=== PATIENT | female | born 1940 | race Caucasian/White ===

== ENCOUNTER → 2016-07-02 | Outpatient (CLI) | payer MEDICARE ==
[~2016-07-02] MED LIST: ABIL5TAB OR; DOCU50SY2 PO; MAGN1SOL2 PO; METO100T PO; MIRA33504 PO; OMEG1CAP53 PO; SENN8.6C PO; ZANT150T2 PO
== END ==
LOC: CLAB 09:40
PROVIDERS: ATTEND Family Medicine
DX: Z11.4 Encounter for screening for human immunodeficiency virus [HIV] (principal)
CPT/HCPCS: 36415; 86703

== ENCOUNTER 2016-08-12 12:11 | Emergency (ER) | payer MEDICARE ==
[~2016-08-12] VITALS: Ht 160 cm; Wt 55.0 kg
[~2016-08-12 12:11] MED LIST changes: -MIRA33504 PO; -SENN8.6C PO
[2016-08-12 12:14] VITALS: BP 158/99; PULSE 79; RESP 16; TEMP 97.9; O2SAT 97
--- NOTE | 2016-08-12 12:15 | PD ---
Physical Exam Time Seen by Provider: 12:14 Narrative 76 y/o female with difficulty having bowel movements and difficulty urinating since this AM. VSS Seen at triage desk. Awaiting bed placement. Data Data Last Documented VS Vital Signs Date Time Temp Pulse Resp B/P Pulse Ox O2 Delivery O2 Flow Rate FiO2 08/12/16 12:14 97.9 79 16 158/99 97 MDM Medical Record Reviewed: Yes Supervised Visit with CLAIRE: No Steven Zarate August 12, 2016 12:15
[2016-08-12] MEDS ORDERED: METO100T PO (12:23)
[2016-08-12] MEDS ORDERED: OMEG1CAP53 PO (12:23)
--- NOTE | 2016-08-12 12:55 | PD ---
HPI Chief Complaint: GI Complaint Time Seen by Provider: 12:42 Travel History International Travel<30 days: No Contact w/Intl Traveler<30days: No Traveled to known affect area: No History of Present Illness HPI Pleasant 76 year-old female here with complaint of constipation and urinary difficulties. Patient has history of chronic constipation, takes to go lax intermittent lay for this. She's not had a bowel movement for days but continues to pass flatus. No abdominal pain, rectal pain, nausea, vomiting. This morning patient has had difficulty urinating, notes frequency, hesitancy but no dysuria or hematuria. PFSH Past Medical History Anxiety: Yes Cardiovascular Problems: Yes (left ventricular hypertrophy) High Cholesterol: Yes (PER HX, UNKNOWN AT THIS TIME) Diabetes: No (AT ONE TIME THOUGHT TO BE PREDIABETIC) Diminished Hearing: No Hypertension: Yes Menopausal: No : 4 Para: 3 Miscarriage: 0 : 1 Past Surgical History Tonsillectomy: Yes (at age 8 or 9) Social History Alcohol Use: No Tobacco Use: No Substance Use: No Allergies-Medications (Allergen,Severity, Reaction): Coded Allergies: No Known Allergies (Verified , 08/12/16) Reported Meds & Prescriptions Reported Meds & Active Scripts Active Docusate Sodium 50 Mg/5 Ml Liq 200 Mg PO DAILY Magnesium Citrate 300 Ml Soln 300 Ml PO DIRECTED Reported Lovaza (Yiltx-8-Rntp Ethyl Esters) 1 Gm Cap 4 Gm PO DAILY Metoprolol Tartrate 100 Mg Tab 100 Mg PO DAILY Lovaza (Fish Oil) 1 Gm Cap 1 Gm PO 4 TIMES DAILY Zantac (Ranitidine HCl) 150 Mg Tab 150 Mg PO BID Metoprolol Tartrate 100 mg (Metoprolol Tartrate) 100 Mg Tab 100 Mg PO DAILY Abilify (Aripiprazole) 5 Mg Tab 5 Mg OR HS Review of Systems Except as stated in HPI: all other systems reviewed are Neg Physical Exam Narrative GENERAL: Pleasant elderly female in no acute distress SKIN: Focused skin assessment warm/dry. HEAD: Normocephalic. EYES: No scleral icterus. No injection or drainage. ENT: Mucous membranes pink and moist. NECK: Supple CARDIOVASCULAR: Regular rate and rhythm. RESPIRATORY: No accessory muscle use. GASTROINTESTINAL: Abdomen soft, non-tender, nondistended. MUSCULOSKELETAL: Normal gait NEUROLOGICAL: Awake and alert. Normal speech. PSYCHIATRIC: Appropriate mood and affect; insight and judgment normal. Data Data Last Documented VS Vital Signs Date Time Temp Pulse Resp B/P Pulse Ox O2 Delivery O2 Flow Rate FiO2 08/12/16 12:14 97.9 79 16 158/99 97 Orders Urinalysis - C+S If Indicated (08/12/16 12:42) Cath For Specimen (08/12/16 12:42) Labs Laboratory Tests Test 08/12/16 12:44 Urine Color YELLOW Urine Turbidity CLEAR Urine pH 5.5 Urine Specific [place] 1.020 Urine Protein TRACE mg/dL Urine Glucose (UA) TRACE mg/dL Urine Ketones NEG mg/dL Urine Occult Blood NEG Urine Nitrite NEG Urine Bilirubin NEG Urine Urobilinogen LESS THAN 2.0 MG/DL Urine Leukocyte Esterase NEG Urine RBC 2 /hpf Urine WBC 1 /hpf Urine Hyaline Casts 16 /lpf Urine Mucus FEW /lpf Microscopic Urinalysis Comment CATH-CULT NOT IND MDM Medical Decision Making Medical Screen Exam Complete: Yes Emergency Medical Condition: Yes Medical Record Reviewed: Yes Differential Diagnosis 76-year-old female here with chronic constipation, urinary difficulties times one day. Differential includes constipation, bowel obstruction, fecal impaction , urinary tract infection. No associated back pain or recent fall to suggest cauda equina syndrome. Narrative Course Urinalysis showed no evidence of urinary tract infection, we'll discharge home with bowel regimen. Diagnosis Primary Impression: Constipation Qualified Code: K59.04 - Chronic idiopathic constipation Referrals: Primary Care Physician as needed Patient Instructions: Constipation (ED), General Instructions Additional Instructions: Bowel regimen as prescribed. Follow-up with primary care provider symptoms persist or return to the ER for the warning signs discussed. Med/Other Pt SpecificInfo: Prescription(s) given Scripts Sennosides (Senna)8.6 Mg Cap8.6 Mg PO HS #30 CAP Ref 0 Prov:Joaquina Song MD 08/12/16 Polyethylene Glycol 3350 Powder (Miralax Powder)17 Gm Powd17 Gm PO BID PRN ( CONSTIPATION) #1 BOTTLE Ref 0 Mix and dissolve one measuring cap-ful (17 grams) in water or juice. Prov:Joaquina Song MD 08/12/16 Disposition: 01 DISCHARGE HOME Condition: Stable Joaquina Song MD August 12, 2016 12:55
[2016-08-12 13:05] LABS: BLOOD, URINE NEG (NEG); COMMENT (UR) CATH-CULT NOT IND; CULTURE IF INDICATED CATH CULTURE NOT IND; GLUCOSE,URINE TRACE mg/dL (NEG); HYALINE CAST, URINE 16 /lpf (RARE); KETONE, URINE NEG (NEG); MUCUS URINE FEW /lpf (OCC); NITRITE,URINE NEG (NEG); PH, URINE 5.5 (5.0-8.5); URINE COLOR YELLOW (YELLW/STRAW)
[2016-08-12] MEDS ORDERED: MIRA33504 PO (13:13)
[2016-08-12] MEDS ORDERED: SENN8.6C PO (13:13)
== END 2016-08-12 13:22 | disposition home or self-care (01) ==
LOC: NEPD 12:11
DX: K59.04 Chronic idiopathic constipation (principal); R30.0 Dysuria; E78.00 Pure hypercholesterolemia, unspecified; I10 Essential (primary) hypertension
CPT/HCPCS: 81001; 99283; P9612

== ENCOUNTER 2016-08-13 08:33 | Emergency (ER) | payer MEDICARE ==
[~2016-08-13] VITALS: Ht 160 cm; Wt 57.0 kg
[~2016-08-13 08:33] MED LIST changes: +MIRA33504 PO; +SENN8.6C PO
[2016-08-13 08:34] VITALS: BP 182/89; PULSE 64; RESP 15; TEMP 97.6; O2SAT 99
--- NOTE | 2016-08-13 09:04 | PD ---
HPI Chief Complaint: GI Complaint Time Seen by Provider: 08:44 Travel History International Travel<30 days: No Contact w/Intl Traveler<30days: No Traveled to known affect area: No History of Present Illness HPI The patient is a 76-year-old female who presents to the emergency department for rectal pain. The patient has a history of intermittent constipation, states her last bowel movement was one week ago. The patient was seen in the emergency department yesterday for constipation, was diagnosed with constipation and discharged home with medications. However, the patient was unable to have a bowel movement last night and at 4 AM this morning developed rectal pain. The patient complains of perirectal pain and pressure with a large stool at the anal orifice. The patient denies any nausea, vomiting, or abdominal pain. Symptoms are moderate, exacerbated by history of constipation, and there are no current alleviating factors. The patient denies any current dysuria, frequency, or urgency. PFSH Past Medical History Anxiety: Yes Cardiovascular Problems: Yes (left ventricular hypertrophy) High Cholesterol: Yes (PER HX, UNKNOWN AT THIS TIME) Diabetes: No (AT ONE TIME THOUGHT TO BE PREDIABETIC) Diminished Hearing: No Hypertension: Yes ?: Not Menopausal: No : 4 Para: 3 Miscarriage: 0 : 1 Past Surgical History Tonsillectomy: Yes (at age 8 or 9) Social History Alcohol Use: No Tobacco Use: No Substance Use: No Allergies-Medications (Allergen,Severity, Reaction): Coded Allergies: No Known Allergies (Verified , 08/12/16) Reported Meds & Prescriptions Reported Meds & Active Scripts Active Senna (Sennosides) 8.6 Mg Cap 8.6 Mg PO HS Miralax Powder (Polyethylene Glycol 3350 Powder) 17 Gm Powd 17 Gm PO BID PRN Mix and dissolve one measuring cap-ful (17 grams) in water or juice. Docusate Sodium 50 Mg/5 Ml Liq 200 Mg PO DAILY Magnesium Citrate 300 Ml Soln 300 Ml PO DIRECTED Reported Lovaza (Nqaet-4-Lpqh Ethyl Esters) 1 Gm Cap 4 Gm PO DAILY Metoprolol Tartrate 100 Mg Tab 100 Mg PO DAILY Lovaza (Fish Oil) 1 Gm Cap 1 Gm PO 4 TIMES DAILY Zantac (Ranitidine HCl) 150 Mg Tab 150 Mg PO BID Metoprolol Tartrate 100 mg (Metoprolol Tartrate) 100 Mg Tab 100 Mg PO DAILY Abilify (Aripiprazole) 5 Mg Tab 5 Mg OR HS Review of Systems Except as stated in HPI: all other systems reviewed are Neg Cardiovascular: No: Chest Pain or Discomfort Respiratory: No: Shortness of Breath Gastrointestinal: Positive: Constipation, Other (perirectal pain and pressure) , No: Nausea, Vomiting, Diarrhea, Abdominal Pain Genitourinary: No: Dysuria Musculoskeletal: No: Weakness Skin: No Rash Physical Exam Narrative GENERAL: Awake, alert, pleasant 76-year-old female who appears her stated age and is in no acute respiratory distress. SKIN: Focused skin assessment warm/dry. HEAD: Atraumatic. Normocephalic. EYES: Pupils equal and round. No scleral icterus. No injection or drainage. ENT: No nasal bleeding or discharge. Mucous membranes pink and moist. NECK: Trachea midline. No JVD. CARDIOVASCULAR: Regular rate and rhythm. No murmur appreciated. RESPIRATORY: No accessory muscle use. Clear to auscultation. Breath sounds equal bilaterally. GASTROINTESTINAL: Abdomen soft, non-tender, nondistended. No rebound tenderness. Rectal: The exam was performed in the presence of a female nurse. Large, hard stool at the anal orifice. No visible blood. No obvious fissure. MUSCULOSKELETAL: No obvious deformities. No clubbing. No cyanosis. No edema. NEUROLOGICAL: Awake and alert. No obvious cranial nerve deficits. Motor grossly within normal limits. Normal speech. PSYCHIATRIC: Appropriate mood and affect; insight and judgment normal. Data Data Last Documented VS Vital Signs Date Time Temp Pulse Resp B/P Pulse Ox O2 Delivery O2 Flow Rate FiO2 08/13/16 08:34 97.6 64 15 182/89 99 MDM Medical Decision Making Medical Screen Exam Complete: Yes Emergency Medical Condition: Yes Medical Record Reviewed: Yes Differential Diagnosis Differential diagnosis includes fecal impaction, constipation, dehydration, diverticulitis, sigmoid volvulus, colonic mass. Narrative Course The patient's physical examination reveals a large stool, hard, impacted at the anal orifice. Therefore, with a female nurse in the room, the large stool was manually disimpacted. The patient had immediate relief of her symptoms. I reviewed the patient's lab work from yesterday, the patient is stable for outpatient follow-up. The patient is advised to drink plenty fluids to stay hydrated, stool softeners, and plenty of diarrhea and her fiber. She is advised to follow-up with her business intelligence analyst, Dr. Murrieta, his symptoms persist. Diagnosis Primary Impression: Fecal impaction in rectum Additional Impression: Constipation Qualified Code: K59.00 - Constipation, unspecified constipation type Patient Instructions: General Instructions Additional Instructions: Plenty of fluids to stay hydrated. Follow-up with her business intelligence analyst. Stool softeners daily. Return if symptoms worsen or progress. Med/Other Pt SpecificInfo: No Change to Meds Disposition: 01 DISCHARGE HOME Condition: Stable Jose Luis Segovia MD August 13, 2016 09:04
== END 2016-08-13 09:21 | disposition home or self-care (01) ==
LOC: NEPE 08:33
DX: K56.41 Fecal impaction (principal)
CPT/HCPCS: 99283

== ENCOUNTER 2016-11-21 20:15 | Emergency (ER) | payer MEDICARE ==
[~2016-11-21] VITALS: Ht 162.6 cm; Wt 57.0 kg
[2016-11-21 20:18] VITALS: BP 212/84; PULSE 73; RESP 16; TEMP 98.3; O2SAT 96
[2016-11-21] MEDS ORDERED: ASPIRIN 325 MG TAB PO ONE (20:30)
[2016-11-21] MEDS ORDERED: SODIUM CHLORIDE 0.9% FLUSH 10 ML FLUSH IVF PRN (20:30)
[2016-11-21] MEDS ORDERED: OMEG100010 (20:32)
[2016-11-21] MEDS ORDERED: METO100T PO (20:32)
[2016-11-21] MEDS ORDERED: ARIP1TAB11 PO (20:32)
[2016-11-21] MEDS ORDERED: RANI150T PO (20:32)
--- NOTE | 2016-11-21 20:36 | PD ---
HPI Chief Complaint: Chest Pain Time Seen by Provider: 23:09 Travel History International Travel<30 days: No Contact w/Intl Traveler<30days: No Traveled to known affect area: No History of Present Illness HPI 76- year old female presents to the ED complaining of palpitations and shortness of breath. The patient reports that she had these symptoms for the past two weeks, only today she feel more "fuzzy." She reports associated lightheadedness and nausea when the episodes occur. She reports when the episodes occur, she gets anxious about the palpitations and then they get worse. She denies any chest pain or pain anywhere else. She denies any smoking, alcohol, or drugs. She reports a past medical history of LVH and HTN. She has no chest pain. No abdominal pain. PFSH Past Medical History Anxiety: Yes Depression: Yes Cardiovascular Problems: Yes (left ventricular hypertrophy) High Cholesterol: Yes Diabetes: No Diminished Hearing: No Hypertension: Yes Menopausal: No : 4 Para: 3 Miscarriage: 0 : 1 Past Surgical History Tonsillectomy: Yes (at age 8 or 9) Social History Alcohol Use: Yes (occassionally) Tobacco Use: No Substance Use: No Allergies-Medications (Allergen,Severity, Reaction): Coded Allergies: No Known Allergies (Verified , 11/21/16) Reported Meds & Prescriptions Reported Meds & Active Scripts Active Reported Aripiprazole 5 Mg Tab 5 Mg PO HS Ranitidine (Ranitidine HCl) 150 Mg Tab 150 Mg PO BID Mcgrath 3 1000 mg (Mcgrath-3 Fatty Acids) 1 Cap Cap 1 Metoprolol Tartrate 100 Mg Tab 100 Mg PO DAILY Review of Systems General / Constitutional: No: Fever, Chills, Weight Gain, Weight Loss, Other Eyes: No: Diploplia, Blurred Vision, Photophobia, Drainage, Redness, Foreign Body Sensation, Pain, Tearing, Blind Spots, Visual changes, Blindness, Other HENT: Positive: Lightheadedness, No: Headaches, Vertigo, Sore Throat, Rhinitis , Rhinorrhea, Congestion, Nosebleed, Neck Stiffness, Neck Pain, Masses, Gingival Bleeding, Dental Difficulties, Ear Discharge, Earache, Other Cardiovascular: Positive: Palpitations, No: Chest Pain or Discomfort, Irregular Rhythm, Tachycardia, Diaphoresis, Syncope, Dyspnea on exertion, Varicosities, Edema, Cyanosis, Varicosities, Phlebitis, Claudication, Other Respiratory: Positive: Shortness of Breath, No: Cough, Wheezing, Sneezing, Orthopnea, Hemoptysis, Stridor, Night Sweats, Pleuritic Pain, Other Gastrointestinal: Positive: Nausea, No: Vomiting, Diarrhea, Abdominal Pain, Hematemesis, Hematochezia, Constipation, Changes in Bowel Habits, Indigestion, Dysphagia, Loss of Appetite, Other Genitourinary: No: Urgency, Frequency, Dysuria, Nocturia, Hematuria, Decreased Urinary Output, Oliguria, Hesitancy, Dribbling, Incontinence, Pelvic Pain, Flank Pain, Dyspareunia, Discharge, Dysmenorrhea, Menorrhagia, Metorrhagia, Vaginal Bleeding, Other Musculoskeletal: No: Myalgias, Arthralgias, Limited ROM, Weakness, Cramping, Edema, Pain, Atrophy, Other Skin: No Rash, No Itching, No Dryness, No Lumps, No Hives, No Change in Pigmentation, No Change in nails, No Alopecia, No Lesions, No Breast Lumps, No Breast Tenderness, No Breast Swelling, No Other Neurologic: No: Weakness, Dizziness, Syncope, Focal Abnormalities, Coordination Problem, Tremor, Ataxia, Headache, Change in Mentation, Slurred Speech, Paresthesia, Incontinence, Seizures, Sensory Disturbance, Other Psychiatric: Positive: Anxiety (with palpitations), No: Depression, Suicidal Ideations, Disorder of Thought, Mood Disorder, Substance Abuse, Homicidal Ideation, Other Physical Exam Narrative GENERAL: SKIN: Warm and dry. HEAD: Atraumatic. Normocephalic. EYES: Pupils equal and round 4 mm reactive to light and accommodation. No scleral icterus. No injection or drainage. ENT: No nasal bleeding or discharge. Mucous membranes pink and moist. NECK: Trachea midline. No JVD. CARDIOVASCULAR: Regular rate and rhythm. No murmurs, S3, S4. RESPIRATORY: No accessory muscle use. Clear to auscultation. Breath sounds equal bilaterally. GASTROINTESTINAL: Abdomen soft, non-tender, nondistended. Hepatic and splenic margins not palpable. MUSCULOSKELETAL: Extremities without clubbing, cyanosis, or edema. No obvious deformities. Full range of motion of the upper and lower extremities bilaterally. 2+ pulses bilaterally. NEUROLOGICAL: Awake and alert. No obvious cranial nerve deficits. Motor grossly within normal limits. Five out of 5 muscle strength in the arms and legs. Normal speech. PSYCHIATRIC: Appropriate mood and affect; insight and judgment normal. Data Data Last Documented VS Vital Signs Date Time Temp Pulse Resp B/P Pulse Ox O2 Delivery O2 Flow Rate FiO2 11/21/16 20:42 173/79 11/21/16 20:42 97 Room Air 11/21/16 20:18 98.3 73 16 Orders Electrocardiogram (11/21/16 20:29) Basic Metabolic Panel (Bmp) (11/21/16 20:29) Ckmb (Isoenzyme) Profile (11/21/16 20:29) Complete Blood Count With Diff (11/21/16 20:29) Magnesium (Mg) (11/21/16 20:29) Prothrombin Time / Inr (Pt) (11/21/16 20:29) Act Partial Throm Time (Ptt) (11/21/16 20:29) Troponin I (11/21/16 20:29) Chest, Single Ap (11/21/16 20:29) Ecg Monitoring (11/21/16 20:29) Bilateral Bp Monitoring (11/21/16 20:29) Iv Access Insert/Monitor (11/21/16 20:29) Oximetry (11/21/16 20:29) Oxygen Administration (11/21/16 20:29) Aspirin (Aspirin) (11/21/16 20:30) Sodium Chloride 0.9% Flush (Ns Flush) (11/21/16 20:30) CKMB (11/21/16 20:35) CKMB% (11/21/16 20:35) Ct Brain W/O Iv Contrast(Rout) (11/21/16 ) Sodium Chlor 0.9% 1000 Ml Inj (Ns 1000 M (11/21/16 22:33) Lorazepam (Ativan) (11/21/16 23:00) Labs Laboratory Tests Test 11/21/16 20:35 White Blood Count 8.1 TH/MM3 Red Blood Count 4.19 MIL/MM3 Hemoglobin 12.6 GM/DL Hematocrit 37.2 % Mean Corpuscular Volume 88.6 FL Mean Corpuscular Hemoglobin 30.1 PG Mean Corpuscular Hemoglobin 34.0 % Concent Red Cell Distribution Width 13.4 % Platelet Count 311 TH/MM3 Mean Platelet Volume 6.8 FL Neutrophils (%) (Auto) 52.0 % Lymphocytes (%) (Auto) 35.7 % Monocytes (%) (Auto) 11.3 % Eosinophils (%) (Auto) 0.4 % Basophils (%) (Auto) 0.6 % Neutrophils # (Auto) 4.2 TH/MM3 Lymphocytes # (Auto) 2.9 TH/MM3 Monocytes # (Auto) 0.9 TH/MM3 Eosinophils # (Auto) 0.0 TH/MM3 Basophils # (Auto) 0.1 TH/MM3 CBC Comment DIFF FINAL Differential Comment Prothrombin Time 10.7 SEC Prothromb Time International 1.0 RATIO Ratio Activated Partial 26.3 SEC Thromboplast Time Sodium Level 135 MEQ/L Potassium Level 3.7 MEQ/L Chloride Level 98 MEQ/L Carbon Dioxide Level 23.8 MEQ/L Anion Gap 13 MEQ/L Blood Urea Nitrogen 16 MG/DL Creatinine 1.20 MG/DL Estimat Glomerular Filtration 44 ML/MIN Rate Random Glucose 136 MG/DL Calcium Level 9.3 MG/DL Magnesium Level 2.2 MG/DL Total Creatine Kinase 153 U/L Creatine Kinase MB 1.9 NG/ML Troponin I LESS THAN 0.02 NG/ML MDM Medical Decision Making Medical Screen Exam Complete: Yes Emergency Medical Condition: Yes Medical Record Reviewed: Yes Interpretation(s) EKG shows sinus rhythm with no sign of acute ischemia or arrhythmia. Read by me and attending. Last Impressions Chest X-Ray 11/21/162028 Signed Impressions: Service Date/Time: Monday, November 21, 2016 20:31 - CONCLUSION: 1. Basilar atelectasis. Moderate scoliosis. Juan Pablo Low MD Head CT 11/21/16 0000 Signed Impressions: Service Date/Time: Monday, November 21, 2016 22:04 - CONCLUSION: Normal examination for a patient of this age. Juan Pablo Low MD CBC & BMP Diagram 11/21/16 20:35 TSH WNL troponin and CKMB negative Differential Diagnosis Anxiety versus palpitations versus PVCs versus arrhythmia versus normal exam Narrative Course 76-year-old female that presents to the ED for evaluation of palpitations. Patient was properly examined and was found to have signs and symptoms consistent with appears to be palpitations. Unclear etiology. Labs and imaging were ordered. Labs and imaging were unremarcable. Case discussed with Dr Caal who will evaluate the patient and dispo. Patient was given a prescription for Vistaril. Please refer to my attendings note. Diagnosis Primary Impression: Palpitations Patient Instructions: Narcotic given in the ED, General Instructions Additional Instructions: Take medications as prescribed. Follow with PCP. See ED worsening symptoms. Med/Other Pt SpecificInfo: Prescription(s) given Disposition: 01 DISCHARGE HOME Condition: Gaot Bangura Nov 21, 2016 20:36
[2016-11-21 20:42] VITALS: BP 173/79; O2SAT 97
[2016-11-21 20:49] LABS: AUTOMATED NEUTROPHIL # 4.2 TH/MM3 (1.8-7.7); BASOPHIL # 0.1 TH/MM3 (0-0.2); BASOPHIL % 0.6 % (0.0-2.0); EOSINOPHIL % 0.4 % (0.0-4.0); HEMATOCRIT 37.2 % (35.0-46.0); HEMO FLAGS DIFF FINAL; LYMPH % 35.7 % (9.0-44.0); LYMPHOCYTE # 2.9 TH/MM3 (1.0-4.8); MEAN CELL VOLUME 88.6 FL (80.0-100.0); MEAN CORPUSCULAR HEMOGLOBIN 30.1 PG (27.0-34.0); MONO % 11.3 % (0.0-8.0); PLATELET COUNT 311 TH/MM3 (150-450); RED BLOOD COUNT 4.19 MIL/MM3 (4.00-5.30); RED CELL DISTRIBUTION WIDTH 13.4 % (11.6-17.2); WHITE BLOOD COUNT 8.1 TH/MM3 (4.0-11.0)
[2016-11-21 21:03] LABS: APTT (PATIENT) 26.3 SEC (24.3-30.1); PROTHROMBIN TIME - PATIENT 10.7 SEC (9.8-11.6)
--- NOTE | 2016-11-21 21:04 | RADRPT ---
EXAM DATE/TIME: 11/21/2016 20:31 [facility] COMPARISON: No previous studies available for comparison. INDICATIONS : Palpitations. MEDICAL HISTORY : None. SURGICAL HISTORY : None. ENCOUNTER: Initial ACUITY: 2 weeks PAIN SCORE: 1/10 LOCATION: Bilateral chest FINDINGS: There is a moderate thoracic dextroscoliosis. Mild basilar density most characteristic of atelectasis . Heart size within normal limits. No effusion or pneumothorax. CONCLUSION: 1. Basilar atelectasis. Moderate scoliosis. Juan Pablo Low MD on November 21, 2016 at 21:02 Board Certified Radiologist. This report was verified electronically.
[2016-11-21 21:06] LABS: ANION GAP 13 MEQ/L (5-15); BICARBONATE 23.8 MEQ/L (21.0-32.0); BLOOD UREA NITROGEN 16 MG/DL (7-18); CHLORIDE 98 MEQ/L (98-107); GLOMERULAR FILTRATION RATE 44 ML/MIN (>89); MAGNESIUM 2.2 MG/DL (1.5-2.5); POTASSIUM 3.7 MEQ/L (3.5-5.1); SODIUM (NA) 135 MEQ/L (136-145)
[2016-11-21 21:09] LABS: CREATINE KINASE 153 U/L (26-192)
[2016-11-21 21:22] LABS: CKMB 1.9 NG/ML (0.5-3.6)
[2016-11-21] MEDS ORDERED: SODIUM CHLOR 0.9% 1000 ML INJ 1,000 ML IV SCH (22:33)
--- NOTE | 2016-11-21 22:40 | RADRPT ---
EXAM DATE/TIME: 11/21/2016 22:04 [facility] COMPARISON: No previous studies available for comparison. INDICATIONS : Headache. RADIATION DOSE: 28.10 CTDIvol (mGy) MEDICAL HISTORY : Hypertension. SURGICAL HISTORY : None. ENCOUNTER: Initial ACUITY: 1 day PAIN SCALE: 6/10 LOCATION: cranial TECHNIQUE: Multiple contiguous axial images were obtained of the head. Using automated exposure control and adj ustment of the mA and/or kV according to patient size, radiation dose was kept as low as reasonably a chievable to obtain optimal diagnostic quality images. DICOM format image data is available electro nically for review and comparison. FINDINGS: CEREBRUM: The ventricles are normal for age. No evidence of midline shift, mass lesion, hemorrhage or acute in farction. No extra-axial fluid collections are seen. POSTERIOR FOSSA: The cerebellum and brainstem are intact. The 4th ventricle is midline. The cerebellopontine angle i s unremarkable. EXTRACRANIAL: The visualized portion of the orbits is intact. SKULL: The calvaria is intact. No evidence of skull fracture. CONCLUSION: Normal examination for a patient of this age. Juan Pablo Low MD on November 21, 2016 at 22:38 Board Certified Radiologist. This report was verified electronically.
--- NOTE | 2016-11-21 22:54 | PD ---
Data Data Last Documented VS Vital Signs Date Time Temp Pulse Resp B/P Pulse Ox O2 Delivery O2 Flow Rate FiO2 11/21/16 20:42 173/79 11/21/16 20:42 97 Room Air 11/21/16 20:18 98.3 73 16 Orders Electrocardiogram (11/21/16 20:29) Basic Metabolic Panel (Bmp) (11/21/16 20:29) Ckmb (Isoenzyme) Profile (11/21/16 20:29) Complete Blood Count With Diff (11/21/16 20:29) Magnesium (Mg) (11/21/16 20:29) Prothrombin Time / Inr (Pt) (11/21/16 20:29) Act Partial Throm Time (Ptt) (11/21/16 20:29) Troponin I (11/21/16 20:29) Chest, Single Ap (11/21/16 20:29) Ecg Monitoring (11/21/16 20:29) Bilateral Bp Monitoring (11/21/16 20:29) Iv Access Insert/Monitor (11/21/16 20:29) Oximetry (11/21/16 20:29) Oxygen Administration (11/21/16 20:29) Aspirin (Aspirin) (11/21/16 20:30) Sodium Chloride 0.9% Flush (Ns Flush) (11/21/16 20:30) CKMB (11/21/16 20:35) CKMB% (11/21/16 20:35) Ct Brain W/O Iv Contrast(Rout) (11/21/16 ) Sodium Chlor 0.9% 1000 Ml Inj (Ns 1000 M (11/21/16 22:33) Lorazepam (Ativan) (11/21/16 23:00) Labs Laboratory Tests Test 11/21/16 20:35 White Blood Count 8.1 TH/MM3 Red Blood Count 4.19 MIL/MM3 Hemoglobin 12.6 GM/DL Hematocrit 37.2 % Mean Corpuscular Volume 88.6 FL Mean Corpuscular Hemoglobin 30.1 PG Mean Corpuscular Hemoglobin 34.0 % Concent Red Cell Distribution Width 13.4 % Platelet Count 311 TH/MM3 Mean Platelet Volume 6.8 FL Neutrophils (%) (Auto) 52.0 % Lymphocytes (%) (Auto) 35.7 % Monocytes (%) (Auto) 11.3 % Eosinophils (%) (Auto) 0.4 % Basophils (%) (Auto) 0.6 % Neutrophils # (Auto) 4.2 TH/MM3 Lymphocytes # (Auto) 2.9 TH/MM3 Monocytes # (Auto) 0.9 TH/MM3 Eosinophils # (Auto) 0.0 TH/MM3 Basophils # (Auto) 0.1 TH/MM3 CBC Comment DIFF FINAL Differential Comment Prothrombin Time 10.7 SEC Prothromb Time International 1.0 RATIO Ratio Activated Partial 26.3 SEC Thromboplast Time Sodium Level 135 MEQ/L Potassium Level 3.7 MEQ/L Chloride Level 98 MEQ/L Carbon Dioxide Level 23.8 MEQ/L Anion Gap 13 MEQ/L Blood Urea Nitrogen 16 MG/DL Creatinine 1.20 MG/DL Estimat Glomerular Filtration 44 ML/MIN Rate Random Glucose 136 MG/DL Calcium Level 9.3 MG/DL Magnesium Level 2.2 MG/DL Total Creatine Kinase 153 U/L Creatine Kinase MB 1.9 NG/ML Troponin I LESS THAN 0.02 NG/ML MDM Supervised Visit with CLAIRE: Yes Narrative Course I, Dr. Caal, have reviewed the advance practice practitioner's documentation and am in agreement, met with the patient face to face, made the diagnosis, and the medical decision making was done by me. *My assessment and Findings: Patient seen and examined by me in addition to Gato Link PA-C. Patient's exam is benign. Symptoms are just generalized feeling of not feeling well. Family is convinced this is an anxiety reaction. Patient less convinced. She did request something for her nerves and was given Ativan. Patient physical exam including neurological chest abdomen is benign. Initial workup EKG troponin unremarkable. I think at this time she is stable for discharge is no indication for admission. Discussed return to ED criteria and need follow-up the primary care physician. Scripts Hydroxyzine Pamoate (Vistaril)50 Mg Cap50 Mg PO QID PRN (ANXIETY) #20 CAP Ref 0 Prov:Chin Caal MD 11/21/16 Disposition: 01 DISCHARGE HOME Condition: Stable Chin Caal MD Nov 21, 2016 22:54
[2016-11-21] MEDS ORDERED: LORazepam 1 MG TAB PO ONE (23:00)
[2016-11-21] MEDS ORDERED: VIST50CA PO (23:10)
--- NOTE | 2016-11-22 17:19 | EKG ---
Date Performed: 11/21/2016 Time Performed: 20:32:00 PTAGE: 76 years EKG: Sinus rhythm BORDERLINE LEFT AXIS DEVIATION BORDERLINE ECG Compared to prior tracing no significant change PREVIOUS TRACING : 09/30/2010 06.42 DOCTOR: Bryant Morris Interpretating Date/Time 11/22/2016 17:16:22
== END 2016-11-21 23:56 | disposition home or self-care (01) ==
LOC: NEPE 20:15
DX: R00.2 Palpitations (principal); R11.0 Nausea; R42 Dizziness and giddiness; M41.9 Scoliosis, unspecified; F32.9 Major depressive disorder, single episode, unspecified; I51.7 Cardiomegaly; I10 Essential (primary) hypertension; Z79.899 Other long term (current) drug therapy
CPT/HCPCS: 70450; 71010; 80048; 82550; 82552; 83735; 84484; 85025; 85610; 85730; 93005; 99285; J7030

== ENCOUNTER 2017-01-14 14:34 | Inpatient (IN) | payer MEDICARE ==
[~2017-01-14] VITALS: Ht 160 cm; Wt 58.6 kg
[~2017-01-14 14:34] MED LIST changes: -ABIL5TAB OR; +ARIP1TAB11 PO; -DOCU50SY2 PO; -MAGN1SOL2 PO; -MIRA33504 PO; +OMEG100010; -OMEG1CAP53 PO; +RANI150T PO; -SENN8.6C PO; +VIST50CA PO; -ZANT150T2 PO
[2017-01-14 14:35] VITALS: BP 208/90; PULSE 63; RESP 16; TEMP 98; O2SAT 96
--- NOTE | 2017-01-14 14:46 | PD ---
Physical Exam Date Seen by Provider: Jan 14, 2017 Time Seen by Provider: 14:45 Narrative 76 year old female here for psych eval. Per patient she doesnt want to be here. Voluntary. Unclear as to why as patient is not very forthcoming with information. Not suicidal but does states she feels depressed. Vitals stable in triage except for BP. Awaiting bed placement. Data Data Last Documented VS Vital Signs Date Time Temp Pulse Resp B/P (MAP) Pulse Ox O2 Delivery O2 Flow Rate FiO2 01/14/17 14:35 98.0 63 16 208/90 (129) 96 Room Air Orders Orders Complete Blood Count With Diff (01/14/17 14:44) Comprehensive Metabolic Panel (01/14/17 14:44) Psych Screen (01/14/17 14:44) Drug Screen, Random Urine (01/14/17 14:44) MDM Medical Record Reviewed: Yes Supervised Visit with CLAIRE: No Gato Link Jan 14, 2017 14:46
[2017-01-14 15:07] LABS: AUTOMATED NEUTROPHIL # 5.2 TH/MM3 (1.8-7.7); BASOPHIL # 0.1 TH/MM3 (0-0.2); BASOPHIL % 0.8 % (0.0-2.0); EOSINOPHIL % 0.1 % (0.0-4.0); HEMO FLAGS DIFF FINAL; LYMPH % 23.5 % (9.0-44.0); LYMPHOCYTE # 1.9 TH/MM3 (1.0-4.8); MEAN CORPUSCULAR HEMOGLOBIN 30.5 PG (27.0-34.0); MEAN CORPUSCULAR HGB CONC 34.7 % (32.0-36.0); MONO % 10.2 % (0.0-8.0); NEUT % 65.4 % (16.0-70.0); PLATELET COUNT 329 TH/MM3 (150-450); RED BLOOD COUNT 4.31 MIL/MM3 (4.00-5.30); RED CELL DISTRIBUTION WIDTH 13.6 % (11.6-17.2)
[2017-01-14 15:33] LABS: ALKALINE PHOSPHATASE 54 U/L (45-117); ALT (GPT) 17 U/L (10-53); ANION GAP 12 MEQ/L (5-15); AST (GOT) 25 U/L (15-37); BICARBONATE 22.2 MEQ/L (21.0-32.0); BLOOD UREA NITROGEN 18 MG/DL (7-18); CHLORIDE 90 MEQ/L (98-107); GLOMERULAR FILTRATION RATE 42 ML/MIN (>89); POTASSIUM 4.5 MEQ/L (3.5-5.1); TOTAL BILIRUBIN ADULT 1.3 MG/DL (0.2-1.0)
--- NOTE | 2017-01-14 15:55 | PD ---
HPI Chief Complaint: Psychiatric Symptoms Time Seen by Provider: 15:49 Travel History International Travel<30 days: No Contact w/Intl Traveler<30days: No Traveled to known affect area: No History of Present Illness HPI 76-year-old female with history of hypertension, diabetes, depression, anxiety presents to the emergency department with her daughter for psychiatric evaluation. Patient states that she stopped taking her medications because she feels that she no longer needs them. She is not doing this in any way to harm self or others. She missed her doctor's appointment today at his regular follow -up but did call the office, thanking the staff for everything they have done, which caused them to be concerned. Her daughter states she has isolated herself as of late and she has done this in the past but she stopped taking her medication. She states that her behavior has been "off." The patient states she has otherwise been well. No recent illnesses, fever, chills. No urinary symptoms. No pain. She has no other symptoms to report. PFSH Past Medical History Anxiety: Yes Depression: Yes Cardiovascular Problems: Yes (left ventricular hypertrophy) High Cholesterol: Yes Diabetes: Yes Diminished Hearing: No Hypertension: Yes Menopausal: No : 4 Para: 3 Miscarriage: 0 : 1 Past Surgical History Tonsillectomy: Yes (at age 8 or 9) Social History Alcohol Use: Yes (occassionally) Tobacco Use: No Substance Use: No Allergies-Medications (Allergen,Severity, Reaction): Coded Allergies: No Known Allergies (Verified , 11/21/16) Reported Meds & Prescriptions Reported Meds & Active Scripts Active Reported Aripiprazole 5 Mg Tab 5 Mg PO HS Ranitidine (Ranitidine HCl) 150 Mg Tab 150 Mg PO BID Rigby 3 1000 mg (Rigby-3 Fatty Acids) 1 Cap Cap 1 Metoprolol Tartrate 100 Mg Tab 100 Mg PO DAILY Review of Systems Except as stated in HPI: all other systems reviewed are Neg Physical Exam Narrative GENERAL: Well-nourished elderly female patient, ambulatory and in no acute distress. SKIN: Focused skin assessment warm/dry. HEAD: Atraumatic. Normocephalic. EYES: Pupils equal and round. No scleral icterus. No injection or drainage. ENT: No nasal bleeding or discharge. Mucous membranes pink and moist. NECK: Trachea midline. No JVD. CARDIOVASCULAR: Regular rate and rhythm. 2/6 systolic murmur appreciated. RESPIRATORY: No accessory muscle use. Clear to auscultation. Breath sounds equal bilaterally. GASTROINTESTINAL: Abdomen soft, non-tender, nondistended. Hepatic and splenic margins not palpable. MUSCULOSKELETAL: No obvious deformities. No clubbing. No cyanosis. No edema. NEUROLOGICAL: Awake and alert. No obvious cranial nerve deficits. Motor grossly within normal limits. Normal speech. PSYCHIATRIC: Appropriate mood and affect; insight and judgment questionable. Data Data Last Documented VS Vital Signs Date Time Temp Pulse Resp B/P (MAP) Pulse Ox O2 Delivery O2 Flow Rate FiO2 01/14/17 14:35 98.0 63 16 208/90 (129) 96 Room Air Orders Orders Complete Blood Count With Diff (01/14/17 14:44) Comprehensive Metabolic Panel (01/14/17 14:44) Psych Screen (01/14/17 14:44) Drug Screen, Random Urine (01/14/17 14:44) Urinalysis - C+S If Indicated (01/14/17 15:50) Iv Access Insert/Monitor (01/14/17 16:03) Sodium Chlor 0.9% 1000 Ml Inj (Ns 1000 M (01/14/17 16:15) Urine Culture (01/14/17 16:00) Labs Laboratory Tests Test 01/14/17 14:45 01/14/17 16:00 White Blood Count 8.0 TH/MM3 Red Blood Count 4.31 MIL/MM3 Hemoglobin 13.2 GM/DL Hematocrit 38.0 % Mean Corpuscular Volume 88.0 FL Mean Corpuscular Hemoglobin 30.5 PG Mean Corpuscular Hemoglobin Concent 34.7 % Red Cell Distribution Width 13.6 % Platelet Count 329 TH/MM3 Mean Platelet Volume 7.1 FL Neutrophils (%) (Auto) 65.4 % Lymphocytes (%) (Auto) 23.5 % Monocytes (%) (Auto) 10.2 % Eosinophils (%) (Auto) 0.1 % Basophils (%) (Auto) 0.8 % Neutrophils # (Auto) 5.2 TH/MM3 Lymphocytes # (Auto) 1.9 TH/MM3 Monocytes # (Auto) 0.8 TH/MM3 Eosinophils # (Auto) 0.0 TH/MM3 Basophils # (Auto) 0.1 TH/MM3 CBC Comment DIFF FINAL Differential Comment Blood Urea Nitrogen 18 MG/DL Creatinine 1.23 MG/DL Random Glucose 80 MG/DL Total Protein 8.1 GM/DL Albumin 3.9 GM/DL Calcium Level 9.4 MG/DL Alkaline Phosphatase 54 U/L Aspartate Amino Transf (AST/SGOT) 25 U/L Alanine Aminotransferase (ALT/SGPT) 17 U/L Total Bilirubin 1.3 MG/DL Sodium Level 124 MEQ/L Potassium Level 4.5 MEQ/L Chloride Level 90 MEQ/L Carbon Dioxide Level 22.2 MEQ/L Anion Gap 12 MEQ/L Estimat Glomerular Filtration Rate 42 ML/MIN Urine Color YELLOW Urine Turbidity CLEAR Urine pH 5.0 Urine Specific [place] 1.008 Urine Protein NEG mg/dL Urine Glucose (UA) NEG mg/dL Urine Ketones 40 mg/dL Urine Occult Blood NEG Urine Nitrite NEG Urine Bilirubin NEG Urine Urobilinogen LESS THAN 2.0 MG/DL Urine Leukocyte Esterase LARGE Urine RBC 1 /hpf Urine WBC 12 /hpf Urine Bacteria RARE /hpf Urine Hyaline Casts 16 /lpf Microscopic Urinalysis Comment CULTURE INDICATED Urine Opiates Screen NEG Urine Barbiturates Screen NEG Urine Amphetamines Screen NEG Urine Benzodiazepines Screen NEG Urine Cocaine Screen NEG Urine Cannabinoids Screen NEG MDM Medical Decision Making Medical Screen Exam Complete: Yes Emergency Medical Condition: Yes Medical Record Reviewed: Yes Differential Diagnosis Mood disorder versus personality disorder versus adjustment reaction disorder versus electrolyte abnormality versus UTI Narrative Course 76 year-old female presents to emergency department all anteriorly for psychiatric evaluation. Patient does appear well. She does admit stopping taking her medications because she does not need them. She is hypertensive here in the emergency department likely due to the patient not taking her medication. Lab work for medical clearance as ordered. Patient does have a sodium of 126. Her urine is also sent for culture however with 12 white blood cells and rare bacteria, we can likely wait for culture to grow prior to antibiotic initiation. I have discussed the patient with my attending physician. A call has been placed to [facility] for admission for hyponatremia. A psychiatric consult will need to be placed. Diagnosis Primary Impression: Hyponatremia Additional Impressions: Depression Qualified Codes: F32.9 - Major depressive disorder, single episode, unspecified Hypertension Qualified Codes: I10 - Essential (primary) hypertension Noncompliance with medication regimen Admitting Information Admitting Physician Requests: Observation Condition: Stable ArnoldEva cortes ANEL Jan 14, 2017 15:55
[2017-01-14 15:59] LABS: SODIUM (NA) 124 MEQ/L (136-145)
[2017-01-14 16:13] LABS: BACTERIA, URINE RARE /hpf; BLOOD, URINE NEG (NEG); COMMENT (UR) CULTURE INDICATED; CULTURE IF INDICATED CULTURE INDICATED; GLUCOSE,URINE NEG (NEG); HYALINE CAST, URINE 16 /lpf (RARE); KETONE, URINE 40 mg/dL (NEG); NITRITE,URINE NEG (NEG); URINE COLOR YELLOW (YELLW/STRAW)
[2017-01-14] MEDS ORDERED: SODIUM CHLOR 0.9% 1000 ML INJ 1,000 ML IV ONE (16:15)
[2017-01-14] MEDS ORDERED: NALOXONE HCL 0.4 MG/ML AMP IV PUSH PRN (18:00)
[2017-01-14] MEDS ORDERED: ENOXAPARIN SODIUM 40 MG/0.4 ML SYRINGE SQ SCH (18:00)
[2017-01-14] MEDS ORDERED: LACTULOSE SYRUP 20 GM/30 ML CUP PO PRN (18:00)
[2017-01-14] MEDS ORDERED: ACETAMINOPHEN 325 MG TAB PO PRN (18:00)
[2017-01-14] MEDS ORDERED: ONDANSETRON HCL 4 MG/2 ML VIAL IVP PRN (18:00)
[2017-01-14] MEDS ORDERED: SODIUM CHLORIDE 0.9% FLUSH 10 ML FLUSH IV FLUSH PRN (18:00)
[2017-01-14] MEDS ORDERED: MAGNESIUM HYDROXIDE SUSP 30 ML CUP PO PRN (18:00)
[2017-01-14] MEDS ORDERED: BISACODYL 10 MG SUPP RECTAL PRN (18:00)
[2017-01-14] MEDS ORDERED: SENNOSIDES 8.6 MG TAB PO PRN (18:00)
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
[2017-01-14] MEDS ORDERED: ENALAPRILAT 2.5 MG/2 ML VIAL IV PUSH PRN (19:00)
[2017-01-14] MEDS ORDERED: hydrALAZINE HCL 10 MG TAB PO PRN (19:00)
[2017-01-14] MEDS: SODIUM CHLOR 0.9% 1000 ML INJ 1,000 ML IV SCH (19:10)
[2017-01-14] MEDS: METOPROLOL TARTRATE 100 MG TAB PO SCH (19:11)
[2017-01-14 20:25] VITALS: PULSE 79
[2017-01-14] MEDS ORDERED: NON-FORMULARY DRUG (Ranitidine 150 MG) PO SCH (21:00)
[2017-01-14] MEDS: SODIUM CHLORIDE 0.9% FLUSH 10 ML FLUSH IV FLUSH SCH (21:00)
[2017-01-14] MEDS: DOCUSATE SODIUM 50 MG/SENNA 8.6 MG TAB PO SCH (21:00)
[2017-01-14] MEDS ORDERED: ARIPiprazole 5 MG TAB PO SCH (21:00)
[2017-01-15] VITALS: BP 158/77; PULSE 52; RESP 17; TEMP 97.8; O2SAT 94
[2017-01-15 04:00] VITALS: BP 141/69; PULSE 56; RESP 18; TEMP 98; O2SAT 95
[2017-01-15] MEDS: SODIUM CHLOR 0.9% 1000 ML INJ 1,000 ML IV SCH ×2 (04:57→13:55)
[2017-01-15 08:00] VITALS: BP 157/74; PULSE 57; RESP 18; TEMP 97.4; O2SAT 95
[2017-01-15] MEDS: DOCUSATE SODIUM 50 MG/SENNA 8.6 MG TAB PO SCH (08:19)
[2017-01-15] MEDS: SODIUM CHLORIDE 0.9% FLUSH 10 ML FLUSH IV FLUSH SCH (08:19)
[2017-01-15 08:46] LABS: AUTOMATED NEUTROPHIL # 2.9 TH/MM3 (1.8-7.7); BASOPHIL # 0.1 TH/MM3 (0-0.2); EOSINOPHIL % 0.7 % (0.0-4.0); HEMATOCRIT 38.1 % (35.0-46.0); HEMO FLAGS DIFF FINAL; LYMPH % 34.1 % (9.0-44.0); LYMPHOCYTE # 1.9 TH/MM3 (1.0-4.8); MEAN CELL VOLUME 89.3 FL (80.0-100.0); MEAN CORPUSCULAR HEMOGLOBIN 30.7 PG (27.0-34.0); MEAN CORPUSCULAR HGB CONC 34.4 % (32.0-36.0); MONO % 13.4 % (0.0-8.0); NEUT % 50.8 % (16.0-70.0); PLATELET COUNT 298 TH/MM3 (150-450); RED BLOOD COUNT 4.27 MIL/MM3 (4.00-5.30); RED CELL DISTRIBUTION WIDTH 13.5 % (11.6-17.2); WHITE BLOOD COUNT 5.6 TH/MM3 (4.0-11.0)
[2017-01-15] MEDS: METOPROLOL TARTRATE 100 MG TAB PO SCH (09:00)
[2017-01-15] MEDS ORDERED: FAMOTIDINE 20 MG TAB PO SCH (09:00)
[2017-01-15 09:04] LABS: POTASSIUM 4.4 MEQ/L (3.5-5.1)
--- NOTE | 2017-01-15 09:10 | HHI.DCPOC ---
Discharge Care Plan Goals to Promote Your Health * To prevent worsening of your condition and complications * To maintain your health at the optimal level Directions to Meet Your Goals Take your medications as prescribed Follow your dietary instruction Follow activity as directed Keep your appointments as scheduled Take your immunizations and boosters as scheduled If your symptoms worsen call your PCP, if no PCP go to Urgent Care Center or Emergency Room Smoking is Dangerous to Your Health. Avoid second hand smoke Call the 24-hour hour crisis hotline for domestic abuse at Gabriela Hankins MD Jan 15, 2017 09:10
--- NOTE | 2017-01-15 09:16 | HHI.PR ---
Subjective Remarks In bed, says she feels good,. No n/v/d/c. No abd pain or muscle cramps. No palpitations, cp, sob. Wants to go home because she is fine. Objective Vitals Vital Signs Date Time Temp Pulse Resp B/P (MAP) Pulse Ox O2 Delivery O2 Flow Rate FiO2 01/15/17 08:00 Room Air 01/15/17 04:57 Nasal Cannula 2.00 01/15/17 04:00 98.0 56 18 141/69 (93) 95 01/15/17 00:00 Nasal Cannula 2.00 01/15/17 00:00 97.8 52 17 158/77 (104) 94 01/14/17 21:25 01/14/17 20:00 Room Air 01/14/17 14:35 98.0 63 16 208/90 (129) 96 Room Air I/O 01/14/17 01/14/17 01/14/17 01/15/17 01/15/17 01/15/17 07:00 15:00 23:00 07:00 15:00 23:00 Intake Total 1000 ml 1650 ml Balance 1000 ml 1650 ml Intake Oral 550 ml IV Total 1000 ml 1100 ml # Voids 3 # Bowel Movements 0 Result Diagram: 01/15/1772701/15/17727 Objective Remarks GENERAL: This is a well-nourished, well-developed patient, in no apparent distress. CARDIOVASCULAR: Regular rate and rhythm without murmurs, gallops, or rubs. RESPIRATORY: Clear to auscultation. Breath sounds equal bilaterally. No wheezes , rales, or rhonchi. GASTROINTESTINAL: Abdomen soft, non-tender, nondistended. No hepato- splenomegaly or guarding. MUSCULOSKELETAL: Extremities without clubbing, cyanosis, or edema. NEUROLOGICAL: Awake and alert. Cranial nerves II through XII intact. Motor and sensory grossly within normal limits. Five out of 5 muscle strength in all muscle groups. Speech was soft yet clear and fluent. Affect was depressed. A/P Problem List: (1) Hyponatremia ICD Code: E87.1 - Hypo-osmolality and hyponatremia Status: Acute (2) Acute kidney injury ICD Code: N17.9 - Acute kidney failure, unspecified (3) Hypertension ICD Code: I10 - Essential (primary) hypertension Status: Acute (4) Depression ICD Code: F32.9 - Major depressive disorder, single episode, unspecified Status: Acute Assessment and Plan Ms. Patrick is 76 yo, with history of depression/anxiety, hypertension , left ventricular hypertrophy, and diabetes. Hyponatremia on admission Na of 124. Corrected, Na of 134 ad discharge. encourage PO intake. -Condition secondary to poor oral intake and increased fluid intake -Received 0/9 NCl at 84 cc /hrd..Monitor BMP q6 hrs , watch for fast correction. Na of 134 today. -serial labs checking sodium levels. Acute kidney injury -Creatinine elevated to 1.25 on admission. Imprpved significantly with 0.9 NS - Received IV fluids -monitor status with labs -avoid nephrotoxins Hypertension -Continue home metoprolol 100 mg po daily -elevations of SBP > 160 and/or DBP>90 to be treated with PRN hydralazine 10 mg q 8 hr and Enalaprilat 2.5 mg IV push q 6 hr PRN Depression -Consult psychiatry, discussed with Dr Noel psych, will ad tigist patient to psychiatry -continue home regimen of Abilify 5 mg PO qHS DVT prophylaxis -Lovenox 40 mg sc q 24 hr GI prophylaxis GERD -famotidine 20 mg daily Patient improved, labs stable. Patient is sable medically. Can discharge to inpatient psych today. Discussed with the patient, nurse, Dr Noel from [facility] Problem Qualifiers (1) Hypertension: Qualified Codes: I10 - Essential (primary) hypertension (2) Depression: Qualified Codes: F32.9 - Major depressive disorder, single episode, unspecified Gabriela Hankins MD Jan 15, 2017 09:16
[2017-01-15] MEDS ORDERED: CIPR250T2 PO (09:17)
[2017-01-15] MEDS ORDERED: CIPROFLOXACIN 250 MG TAB PO SCH (10:00)
--- NOTE | 2017-01-15 15:25 | PD.PSY.CON ---
Provisional Diagnosis Admission Date Jan 14, 2017 at 17:56 [place] I. Unspecified psychosis vs schizoaffective disorder, depressive type vs major depressive disorder, recurrent, severe, with psychotic features [place] II. Deferred [place] III. CHF, HTN, DM, adrenal mass [place] IV. Noncompliant with medications [place] V. 40 History of Present Illness Service Psychiatry Consult Requested By Reason for Consult Depressive symptoms Primary Care Physician Cedrick Hernadez M.D. HPI The patient is a 76-year-old woman, domiciled alone [place], single , retired, and Social Security, with history psych at a history of depression with melancholia, 1 hospitalization here at [facility] in 2011 under the care of Dr. Ascencio, documentation review, no previous suicidal attempts, she has been Remeron 15 mg, Abilify 5 mg, but she has not been compliant to medication in the last month, medical history of hypertension, left ventricular hypertrophy, and diabetes. Brought to the hospital by her daughter due to hypoactivity, depression. She was found with Hyponatremia on admission Na of 124. Corrected, Na of 134 ad discharge. Acute kidney injury. Hypertension, consulted to psychiatry due to depression. Patient on psychiatric evaluation very distant, superficially cooperative, in a melancholic state. Patient has a marked psychomotor retardation, speech latency and blocking thought. She says that she is here because she was obligated by her daughter to come here. She says that she has been depressed for a long time "for things that I cannot share with anybody". Patient says that there is no reason for her to continue living "since I am affecting the people I love". Patient reports guiltiness, intrusive thoughts of worthlessness, helplessness, hopelessness, suicidal thoughts, but she denies plans. Patient says that she would like to share something to me to understand her situation "but he has to be a secret, and wanted to talk this with anybody". Patient says that she is strongly believed that she has AIDS and she is contaminating her neighbors, her family. He says that even though she has been repeatedly say that she is negative "I know that I have AIDS". Patient says that she spent hours and hours of her day "just thinking and is disgrace". Patient denies homicidal ideation, visual and auditory hallucinations. Patient is oriented 3, even though at times she looks confused and internally preoccupied. I spoke by phone with her daughter Joanna, . She says that her mother has been secluded, isolated and functioning poorly. She says that she was living out of state and has recently moved back to [place] to take care of her mother. However, her mother is reluctant to allow her kids to come to her house to help her. She says that she had noted that her mother is severely depressed "and she has been thinking about having AIDS" even though when she has been tested many times. She says that she was called by a neighbor of the patient who told her the patient has been acting bizarre, no talking with anybody, and looks very suspicious. Review of Systems Constitutional: DENIES: Diaphoretic episodes, Fatigue, Fever, Weight gain, Weight loss, Chills, Dizziness, Change in appetite, Night Sweats Endocrine: DENIES: Abnorml menstrual pattern, Heat/cold intolerance, Polydipsia , Polyuria, Polyphagia Eyes: DENIES: Blurred vision, Diplopia, Eye inflammation, Eye pain, Vision loss , Photosensitivity, Double Vision Ears, nose, mouth, throat: DENIES: Tinnitus, Hearing loss, Vertigo, Nasal discharge, Oral lesions, Throat pain, Hoarseness, Ear Pain, Running Nose, Epistaxis, Sinus Pain, Toothache, Odynophagia Respiratory: DENIES: Apneas, Cough, Snoring, Wheezing, Hemoptysis, Sputum production, Shortness of breath Cardiovascular: DENIES: Chest pain, Palpitations, Syncope, Dyspnea on Exertion , PND, Lower Extremity Edema, Orthopnea, Claudication Gastrointestinal: DENIES: Abdominal pain, Black stools, Bloody stools, Constipation, Diarrhea, Nausea, Vomiting, Difficulty Swallowing, Anorexia Genitourinary: DENIES: Abnormal vaginal bleeding, Dysmenorrhea, Dyspareunia, Sexual dysfunction, Urinary frequency, Urinary incontinence, Urgency, Hematuria , Dysuria, Nocturia, Vaginal discharge Musculoskeletal: DENIES: Joint pain, Muscle aches, Stiffness, Joint Swelling, Back pain, Neck pain Hematologic/lymphatic: DENIES: Bruising, Lymphadenopathy Immunologic/allergic: DENIES: Eczema, Urticaria Neurologic: DENIES: Abnormal gait, Headache, Localized weakness, Paresthesias, Seizures, Speech Problems, Tremor, Poor Balance Psychiatric: COMPLAINS OF: Depression, DENIES: Anxiety, Confusion, Mood changes , Hallucinations, Agitation, Suicidal Ideation, Homicidal Ideation Past Family Social History Coded Allergies: No Known Allergies (Verified , 11/21/16) Active Scripts Ciprofloxacin (Ciprofloxacin) 250 Mg Tab, 250 MG PO BID for Infection, #10 TAB 0 Refills Prov:Gabriela Hankins MD 01/15/17 Reported Medications Aripiprazole (Aripiprazole) 5 Mg Tab, 5 MG PO HS, #30 TAB 0 Refills 11/21/16 Ranitidine (Ranitidine) 150 Mg Tab, 150 MG PO BID for Heartburn Management, #60 TAB 0 Refills 11/21/16 [place]-3 Fatty Acids ([place] 3 1000 mg) 1 Cap Cap, 1 11/21/16 Metoprolol Tartrate (Metoprolol Tartrate) 100 Mg Tab, 100 MG PO DAILY, #30 TAB 0 Refills 11/21/16 Discontinued Scripts Hydroxyzine Pamoate (Vistaril) 50 Mg Cap, 50 MG PO QID Y for ANXIETY, #20 CAP 0 Refills Prov:Chin Caal MD 11/21/16 Current Medications Medications (Trade) Dose Ordered Sig/[place] Route Start Time Stop Time Status Last Admin Sodium Chloride 1,000 ml @ 100 mls/hr Q10H IV 01/14/17 17:55 01/15/17 04:57 (NS Flush) 2 ml UNSCH PRN IV FLUSH 01/14/17 18:00 (NS Flush) 2 ml BID IV FLUSH 01/14/17 21:00 (Tylenol) 650 mg Q4H PRN PO 01/14/17 18:00 (Zofran Inj) 4 mg Q6H PRN IVP 01/14/17 18:00 (Lovenox Inj) 40 mg Q24H SQ 01/14/17 18:00 01/14/17 19:11 (Narcan Inj) 0.4 mg UNSCH PRN IV PUSH 01/14/17 18:00 (Tiffanie-Colace) 1 tab BID PO 01/14/17 21:00 01/14/17 21:00 (Milk Of Magnesia Liq) 30 ml Q12H PRN PO 01/14/17 18:00 (Senokot) 17.2 mg Q12H PRN PO 01/14/17 18:00 (Dulcolax Supp) 10 mg DAILY PRN RECTAL 01/14/17 18:00 (Lactulose Liq) 30 ml DAILY PRN PO 01/14/17 18:00 (Abilify) 5 mg HS PO 01/14/17 21:00 01/14/17 21:00 (Lopressor) 100 mg DAILY PO 01/14/17 19:00 01/14/17 19:11 (Apresoline) 10 mg Q8HR PRN PO 01/14/17 19:00 (Vasotec Inj) 2.5 mg Q6H PRN IV PUSH 01/14/17 19:00 (Pepcid) 20 mg DAILY PO 01/15/17 09:00 01/15/17 08:19 (Cipro) 250 mg Q12HR PO 01/15/17 10:00 01/15/17 10:24 Family Psych History Patient denies family psychiatric history Social History Patient was born and raised in [place], she has been living in [place] since adolescence, she lives alone in [place], she has 2 kids, she is retired , on Social Security, her highest level of education is 12th grade Patient's Strengths (min. 2) Family support Physical Exam Patient is markedly hypoactive, with psychomotor retardation, seems to be very melancholic, no tremors, no EPS, no stiffness, no pupillarities abnormalities Vital Signs Vital Signs Date Time Temp Pulse Resp B/P (MAP) Pulse Ox O2 Delivery O2 Flow Rate FiO2 01/15/17 08:00 Room Air 01/15/17 08:00 97.4 57 18 157/74 (101) 95 01/15/17 04:57 2.00 I/O 01/15/17 01/15/17 01/16/17 08:00 16:00 00:00 Intake Total 1650 ml Balance 1650 ml Lab Results Test 01/14/17 16:00 01/15/17 07:28 Urine Color YELLOW Urine Turbidity CLEAR Urine pH 5.0 Urine Specific [place] 1.008 Urine Protein NEG mg/dL Urine Glucose (UA) NEG mg/dL Urine Ketones 40 mg/dL Urine Occult Blood NEG Urine Nitrite NEG Urine Bilirubin NEG Urine Urobilinogen LESS THAN 2.0 MG/DL Urine Leukocyte Esterase LARGE Urine RBC 1 /hpf Urine WBC 12 /hpf Urine Bacteria RARE /hpf Urine Hyaline Casts 16 /lpf Microscopic Urinalysis Comment CULTURE INDICATED Urine Opiates Screen NEG Urine Barbiturates Screen NEG Urine Amphetamines Screen NEG Urine Benzodiazepines Screen NEG Urine Cocaine Screen NEG Urine Cannabinoids Screen NEG White Blood Count 5.6 TH/MM3 Red Blood Count 4.27 MIL/MM3 Hemoglobin 13.1 GM/DL Hematocrit 38.1 % Mean Corpuscular Volume 89.3 FL Mean Corpuscular Hemoglobin 30.7 PG Mean Corpuscular Hemoglobin Concent 34.4 % Red Cell Distribution Width 13.5 % Platelet Count 298 TH/MM3 Mean Platelet Volume 7.4 FL Neutrophils (%) (Auto) 50.8 % Lymphocytes (%) (Auto) 34.1 % Monocytes (%) (Auto) 13.4 % Eosinophils (%) (Auto) 0.7 % Basophils (%) (Auto) 1.0 % Neutrophils # (Auto) 2.9 TH/MM3 Lymphocytes # (Auto) 1.9 TH/MM3 Monocytes # (Auto) 0.8 TH/MM3 Eosinophils # (Auto) 0.0 TH/MM3 Basophils # (Auto) 0.1 TH/MM3 CBC Comment DIFF FINAL Differential Comment Blood Urea Nitrogen 11 MG/DL Creatinine 0.83 MG/DL Random Glucose 74 MG/DL Calcium Level 9.2 MG/DL Sodium Level 135 MEQ/L Potassium Level 4.4 MEQ/L Chloride Level 101 MEQ/L Carbon Dioxide Level 23.0 MEQ/L Anion Gap 11 MEQ/L Estimat Glomerular Filtration Rate 67 ML/MIN Date/Time Source Procedure Growth Status 01/14/17 16:00 Urine Clean Catch Urine Culture - Preliminary IMMATURE GROWTH - REINCUBATE Resulted Mental Status Examination Appearance: Well dressed/well groomed Consciousness: Alert Orientation: x4 Motor Activity: Other (psychomotor retardation) Speech: Hesitant, Slow Fund of Knowledge: Adequate Attention and Concentration: Adequate Memory: Unremarkable Mood: Sad Affect: Sad Thought Process & Associations: Loose associations, Other (marked blocking thought) Thought Content: Thought blocking, Delusional Hallucination Type: None Delusion Type: Somatic Suicidal Ideation: Yes Suicidal Plan: No Suicidal Intention: No Homicidal Ideation: No Homicidal Plan: No Homicidal Intention: No Insight: Poor Judgment: Poor Assessment & Plan Problem List: (1) Major depressive disorder with psychotic features ICD Codes: F32.3 - Major depressive disorder, single episode, severe with psychotic features Status: Chronic Assessment & Plan: On psychiatric evaluation today the patient presents with features of severe depression, including guiltiness, psychomotor retardation, internal preoccupation, poverty of speech, blocking thought, hopelessness, helplessness, decreased functionality, decreased sleep, decreased level of concentration, and suicidal thoughts, but no suicidal plan. She also presents with what seems to be somatic delusional thinking, patient is fixed in the idea of having AIDS and despite of medical reassurance testing patient continues to be insightless about this psychosis. Patient has history of melancholy in the past, she was admitted here at [facility] in 2011. Apparently responded positive to psychotropics, but has stopped taking her medication in recent months. At this moment the patient represents an acute danger to herself and needs psychiatric admission for stabilization. We'll start Abilify 2 mg for psychosis. Effexor 37.5 milligrams for depression. Patient can be transferred to psychiatry. Extensive support, motivation and psychoeducation provided. Case was discussed with Dr. Hankins, patient's daughter, and they verbalized agreement and understanding with the plan. Assessment & Plan Estimated LOS: days Problem Qualifiers (1) Major depressive disorder with psychotic features: Wolf Noel MD Jan 15, 2017 15:25
[2017-01-16] MEDS ORDERED: ARIPiprazole 2 MG TAB PO SCH (09:00)
== END 2017-01-15 15:24 | DRG 641 ==
LOC: NEPD 14:34 → NEDA 17:50 → OBSVTOIN 17:56 → N04B 21:26
PROVIDERS: ADMIT Hospitalist; ATTEND Hospitalist
DX: E87.1 Hypo-osmolality and hyponatremia (principal); N17.9 Acute kidney failure, unspecified; F32.3 Major depressive disorder, single episode, severe with psychotic features; E11.9 Type 2 diabetes mellitus without complications; I10 Essential (primary) hypertension; F41.9 Anxiety disorder, unspecified; K21.9 Gastro-esophageal reflux disease without esophagitis; E78.00 Pure hypercholesterolemia, unspecified; Z91.14 Patient's other noncompliance with medication regimen
CPT/HCPCS: 80048; 80053; 80307; 81001; 85025; 87086; 96360; J1650; J7030

== ENCOUNTER 2017-01-15 12:11 | Inpatient (IN) | payer MEDICARE ==
[~2017-01-15] VITALS: Ht 161.3 cm; Wt 56.0 kg
[~2017-01-15 12:11] MED LIST changes: +CIPR250T2 PO; -VIST50CA PO
[2017-01-15 15:00] VITALS: BP 163/75; PULSE 72; RESP 16; TEMP 98.1; O2SAT 97
[2017-01-15] MEDS ORDERED: ACETAMINOPHEN 325 MG TAB PO PRN (15:15)
[2017-01-15] MEDS ORDERED: LORazepam 2 MG/ML VIAL IM PRN ×2 (15:15)
[2017-01-15] MEDS ORDERED: MAGNESIUM HYDROXIDE SUSP 30 ML CUP PO PRN (15:15)
[2017-01-15] MEDS ORDERED: LORazepam 0.5 MG TAB PO PRN (15:15)
[2017-01-15] MEDS ORDERED: LORazepam 1 MG TAB PO PRN (15:15)
[2017-01-15] MEDS ORDERED: ALUMINUM/MAGNESIUM/SIMETH 30 ML CUP PO PRN (15:15)
[2017-01-15] MEDS: NICOTINE 21 MG/24 HR PATCH T-DERMAL SCH (15:58)
[2017-01-15] MEDS: OLANZapine 2.5 MG TAB PO SCH (21:00)
[2017-01-16 05:51] VITALS: BP 153/81; PULSE 76; RESP 18; TEMP 98.1; O2SAT 95
[2017-01-16] MEDS: NICOTINE 21 MG/24 HR PATCH T-DERMAL SCH (08:22)
[2017-01-16] MEDS: VENLAFAXINE HCL XR 37.5 MG CAP PO SCH (08:22)
[2017-01-16] MEDS: REMOVE OLD NICOTINE PATCH T-DERMAL SCH (08:22)
[2017-01-16] MEDS: OLANZapine 2.5 MG TAB PO SCH ×2 (08:22→20:55)
--- NOTE | 2017-01-16 14:07 | HHI.HP ---
Provisional Diagnosis Admission Date Jan 15, 2017 at 15:28 [place] I. Major depressive disorder with psychotic features Certification of Person's Competence To Provide Express and Informed Consent I have personally examined Stephanie Patrick , a person being served at [facility] on, Jan 16, 2017 14:06. Express and informed consent means consent voluntarily given in writing, by a competent person, after sufficient explanation and disclosure of the subject matter involved to enable the person to make a knowing and willful decision without any element of force, fraud, deceit, duress, or other form of constraint or coercion. This person is 18 years of age or older, is not now known to be incompetent to consent to treatment with a guardian advocate, and does not have a health care surrogate or proxy currently making medical treatment decisions. I have found this person to be one of the following: [] Competent to provide express and informed consent, as defined above, for voluntary admission to this facility and is competent to provide express and informed consent for treatment. He/she has the consistent capacity to make well reasoned, willful, and knowing decisions concerning his or her medical or mental health treatment. The person fully and consistently understands the purpose of the admission for examination/placement and is fully capable of personally exercising all rights assured [place] Incompetent to provide express and informed consent to voluntary admission, and this is incompetent to provide express and informed consent to treatment. The person must be transferred to involuntary status and a petition for a guardian advocate filed with the Circuit Court. [x] Refusing to provide express and informed consent to voluntary admission but is competent to provide express and informed consent for treatment. The person must be discharged or transferred to involuntary status. Form shall be completed within 24 hours of a person's arrival at the receiving facility and filed in the clinical record of each person: 1. Admitted on a voluntary basis 2. Permitted to provide express and informed consent to his/her own treatment 3. Allowed to transfer from involuntary to voluntary status 4. Prior to permitting a person to consent to his or her own treatment after having been previously found incompetent to consent to treatment. History of Present Illness Capacity: Has Capacity Psych Chief Complaint: worsening depression, SI, with delusions HPI Patient is a 76 y/o woman, , three children (two living), domiciled alone, supported by social security benefits, with past psychiatric history of depression, anxiety with one prior psychiatric hospitalization ( [place] 2011), no previous suicide attempts, no self injurious behavior who was transferred to the inpatient psychiatry unit from the medical floor after stabilization of hyponatremia and YOON after patient was noted to be delusional and depressed for further evaluation and management. As per the ED note, patient was brought in by daughter who reported that the patient was isolating from her, missed primary care physician appointment, and having stopped her medications. As per psychiatry consult note, patient noted to have delusion of having AIDS despite negative testing and was started on venlafaxine 37.5 daily for depression with aripiprazole 2mg PO daily for psychosis. Patient was seen sitting on hospital chair, calm and cooperative with interview. Patient states her daughter brought her because I believed I have AIDS, pacing and kept thinking about this and states could not think straight. She mentions that she would not let anyone in the home and that she had stopped her medications for 2 months. She mentions that she had taken an HIV test which was negative and felt better which she resumed her medications at one point but again stopped. She states that after stopping a second time the thought came back again and was twice as bad. She states knowing it is not true but I cant stop thinking about it. She reports decreased sleep and concentration, with appetite and energy being up and down, mood lately being sad, at times feeling helpless and hopeless as well as having thoughts of not wanting to be alive but not wanting to end her life. Currently she states feeling sad but denies SI, HI, AVH at time of interview. Family psychiatric history: maternal aunt committed suicide Past psychiatric history: previous psychiatric diagnosis of depression and anxiety, one previous psychiatric admission ([place] in 2011), no previous suicide attempt or history of self injurious behavior. Outpatient psychiatrist last seen one year ago. Previous psychiatric medications: remeron 15mg PO HS, aripiprazole 5mg PO daily. Denies history of abuse. Substance use history: ETOH use, last in 2015, drinks occasionally and usually 2 drinks, denies use of any other illegal substance. Denies use of previous rehab or detox. Past medical history: HTN, pre-DM, HLD, GERD, history of RT adrenal gland tumor (last checked in ) Allergies: NKDA Social history: , three children (2 living), lives alone, supported on social security benefits. Highest education: 12th grade. Collateral contact: Joanna (daughter) [phone] Legal history: two DUIs in her 30s. Review of Systems Except as stated in HPI: all other systems reviewed are Neg Past Psych History Psychological trauma history denies Violence risk - others (6 mos) low Violence risk - self (6 mos) low Substance Abuse History Drugs/Alcohol past 12 months ETOH use, last in 2016, drinks occasionally and usually 2 drinks, denies use of any other illegal substance. Denies use of previous rehab or detox. Past Family Social History Coded Allergies: No Known Allergies (Verified , 11/21/16) Active Scripts Ciprofloxacin (Ciprofloxacin) 250 Mg Tab, 250 MG PO BID for Infection, #10 TAB 0 Refills Prov:Gabriela Hankins MD 01/15/17 Reported Medications Aripiprazole (Aripiprazole) 5 Mg Tab, 5 MG PO HS, #30 TAB 0 Refills 11/21/16 Ranitidine (Ranitidine) 150 Mg Tab, 150 MG PO BID for Heartburn Management, #60 TAB 0 Refills 11/21/16 [place]-3 Fatty Acids ([place] 3 1000 mg) 1 Cap Cap, 1 11/21/16 Metoprolol Tartrate (Metoprolol Tartrate) 100 Mg Tab, 100 MG PO DAILY, #30 TAB 0 Refills 11/21/16 Discontinued Scripts Hydroxyzine Pamoate (Vistaril) 50 Mg Cap, 50 MG PO QID Y for ANXIETY, #20 CAP 0 Refills Prov:Chin Caal MD 11/21/16 Current Medications Medications (Trade) Dose Ordered Sig/[place] Route Start Time Stop Time Status Last Admin (Ativan) 0.5 mg Q12H PRN PO 01/15/17 15:15 (Ativan Inj) 0.5 mg Q12H PRN IM 01/15/17 15:15 (Tylenol) 650 mg Q4H PRN PO 01/15/17 15:15 (Milk Of Magnesia Liq) 30 ml DAILY PRN PO 01/15/17 15:15 (Mag-Al Plus Susp Liq) 30 ml Q6H PRN PO 01/15/17 15:15 (Habitrol 21 Mg Patch.24 Hr) 1 patch DAILY T-DERMAL 01/15/17 15:15 (ZyPREXA) 2.5 mg Q12HR PO 01/15/17 21:00 (Effexor Xr) 37.5 mg DAILY PO 01/16/17 09:00 Miscellaneous Information 1 DAILY T-DERMAL 01/16/17 09:00 Family Psych History maternal aunt completed suicide Social History , three children (2 living), lives alone, supported on social security benefits. Highest education: 12th grade. Collateral contact: Joanna (daughter) [phone] Legal history: two DUIs in her 30s. Patient's Strengths (min. 2) verbal and communicative Physical Exam Patient found to be in no acute distress, no noted gross motor abnormalities, no tremors of EPS, no noted psychomotor agitation of retardation. Vital Signs Vital Signs Date Time Temp Pulse Resp B/P (MAP) Pulse Ox O2 Delivery O2 Flow Rate FiO2 01/16/17 05:51 98.1 76 18 153/81 (105) 95 Mental Status Examination Appearance: Appropriate Consciousness: Alert Orientation: Person, Place, Date/Time Motor Activity: Normal gait Speech: Other (speech latency) Language: Adequate Fund of Knowledge: Adequate Attention and Concentration: Adequate Memory: Unremarkable Mood: Sad, Anxious Affect: Sad, Anxious Thought Process & Associations: Linear, Other (thought blocking) Thought Content: Thought blocking, Delusional (of having AIDS) Hallucination Type: None Delusion Type: Other Suicidal Ideation: Yes Suicidal Plan: No Suicidal Intention: No Homicidal Ideation: No Homicidal Plan: No Homicidal Intention: No Insight: Poor Judgment: Poor Assessment & Plan Problem List: (1) Major depressive disorder with psychotic features ICD Codes: F32.3 - Major depressive disorder, single episode, severe with psychotic features Status: Chronic Assessment & Plan Estimated LOS: 5-7 days. Patient is a 76 y/o woman who carries a diagnosis of depression and anxiety who was brought in by daughter after worsening depression , isolating in her home, with delusion that she has AIDS despite recent testing in the context of medication nonadherence. Will continue abilfy 2mg PO daily for psychosis and venlafaxine 37.5 for depression. Monitor for medication response ADRs. Continue to monitor mood and behavior. Encourage patient to increase PO intake. Collateral pending. Discharge planning in progress. Discharge Planning Patient once stabilized will return back home or with daughter. Trevor Clarke MD Jan 16, 2017 14:07
--- NOTE | 2017-01-16 15:55 | PD.CONS ---
HPI Service [facility] Hospitalists Consult Requested By Trevor Clarke M.D. Reason for Consult Medical management Primary Care Physician Cedrick Hernadez M.D. Diagnoses: History of Present Illness Written by Ang Cordova PA-C acting as scribe for Dr. Luis Alfredo Hankins on 01/16/17 at 15:41. Ms. Patrick is 76 yo, with history of depression/anxiety, hypertension , left ventricular hypertrophy, and diabetes. She was admitted to [facility] on 01/14/17 with hyponatremia, hypertension, acute kidney injury and depression. She was followed by the hospitalist team and psychiatry was consulted. Her medical conditions improved and she was discharged to the psychiatry service to address her mental health needs. The hospitalist team was consulted in order to manage medical issues. At time of interview, Ms. Patrick was seen in her room on the psychiatric service. She was sitting in a chair. She denied fever, cough. NVD, abdominal/ chest pain, shortness of breath. She noted she was eating "a little" bit. She stated her blood pressure was stable but "it is going up and down." When asked if it was due to anxiety or depression, Ms. Patrick said "it fluctuates." A 10 point ROS was conducted and, except as noted above, was negative. Review of Systems Except as stated in HPI: all other systems reviewed are Neg Past Family Social History Allergies: Coded Allergies: No Known Allergies (Verified , 11/21/16) Past Medical History depression/anxiety, hypertension, left ventricular hypertrophy, diabetes. Past Surgical History Tonsillectomy. Reported Medications Reported Meds & Active Scripts Active Ciprofloxacin (Ciprofloxacin HCl) 250 Mg Tab 250 Mg PO BID Reported Aripiprazole 5 Mg Tab 5 Mg PO HS Ranitidine (Ranitidine HCl) 150 Mg Tab 150 Mg PO BID [place] 3 1000 mg ([place]-3 Fatty Acids) 1 Cap Cap 1 Metoprolol Tartrate 100 Mg Tab 100 Mg PO DAILY Active Ordered Medications Current Medications Medications (Trade) Dose Ordered Sig/Keenan Route Start Time Stop Time Status Last Admin (Ativan) 0.5 mg Q12H PRN PO 01/15/17 15:15 (Ativan Inj) 0.5 mg Q12H PRN IM 01/15/17 15:15 (Tylenol) 650 mg Q4H PRN PO 01/15/17 15:15 (Milk Of Magnesia Liq) 30 ml DAILY PRN PO 01/15/17 15:15 (Mag-Al Plus Susp Liq) 30 ml Q6H PRN PO 01/15/17 15:15 (Habitrol 21 Mg Patch.24 Hr) 1 patch DAILY T-DERMAL 01/15/17 15:15 (ZyPREXA) 2.5 mg Q12HR PO 01/15/17 21:00 (Effexor Xr) 37.5 mg DAILY PO 01/16/17 09:00 Miscellaneous Information 1 DAILY T-DERMAL 01/16/17 09:00 Family History Mother-lived to be 96 and of naterual causes. Father- at age 50 of unknown cancer. Family history of diabetes and hypertension, breast cancer. A niece had an unknown cancer. A brother had renal disease. Social History Smoking-denied Occasional alcohol use was endorsed. Pt denied illicit/recreational drug use. Physical Exam Vital Signs Vital Signs Date Time Temp Pulse Resp B/P (MAP) Pulse Ox O2 Delivery O2 Flow Rate FiO2 01/16/17 05:51 98.1 76 18 153/81 (105) 95 Physical Exam GENERAL: This is a well-nourished, well-developed patient, in no apparent distress. SKIN: No rashes, ecchymoses or lesions. Cool and dry. HEAD: Atraumatic. Normocephalic. EYES: Pupils equal round and reactive. Extraocular motions intact. No scleral icterus. No injection or drainage. ENT: Nose without bleeding or purulent drainage. Airway patent. NECK: Trachea midline. No lymphadenopathy. Supple and nontender. CARDIOVASCULAR: Regular rate and rhythm without murmurs, gallops, or rubs. RESPIRATORY: Clear to auscultation. Breath sounds equal bilaterally. No wheezes , rales, or rhonchi. GASTROINTESTINAL: Abdomen soft, non-tender, nondistended. No hepato- splenomegaly or guarding. MUSCULOSKELETAL: Extremities without clubbing, cyanosis, or edema. NEUROLOGICAL: Awake and alert. Cranial nerves II through XII intact. Motor and sensory grossly within normal limits. Five out of 5 muscle strength in all muscle groups. Speech was clear and fluent. Assessment and Plan Assessment and Plan Ms. Patrick is 76 yo, with history of depression/anxiety, hypertension , left ventricular hypertrophy, and diabetes. Hypertension -Monitor. -Continue home metoprolol 100 mg po daily -elevations of SBP > 160 and/or DBP>90 to be treated with PRN hydralazine 10 mg q 8 hr and Enalaprilat 2.5 mg IV push q 6 hr PRN Hyponatremia -check labs in am -Replace sodium as needed. Recent history of acute kidney injury -Creatinine 0.83 -monitor status with labs -avoid nephrotoxins Depression -Treat per psychiatry DVT prophylaxis ambulation. GI prophylaxis GERD -famotidine 20 mg daily This note was transcribed by ROXANNE BaeCAbbie I, Dr. Gabriela Hankins personally performed the history, physical exam, and medical decision making; and confirmed the accuracy of the information in the transcribed note. Authenticated by Dr. Gabriela Hankins on 01/16/17 at 15:41. Discussed Condition With patient and psychiatric team. Ang Cordova Jr. Jan 16, 2017 15:55 Gabriela Hankins MD Jan 16, 2017 16:47
[2017-01-16] MEDS ORDERED: hydrALAZINE HCL 10 MG TAB PO PRN (17:00)
[2017-01-16 18:00] VITALS: BP 154/73; PULSE 86; RESP 17; TEMP 98.6; O2SAT 97
[2017-01-17 06:14] VITALS: BP 131/78; PULSE 105; RESP 18; TEMP 97.9; O2SAT 94
--- NOTE | 2017-01-17 07:23 | HHI.PR ---
Subjective Remarks Appears in nad, feels better. Awaiting breakfast. Eating better. No abd cramps, n/v/d/c. No pain in legs or arms. Alert and oriented. Pleasant. No fever ro chills. No chest pain or sob. Objective Vitals Vital Signs Date Time Temp Pulse Resp B/P (MAP) Pulse Ox O2 Delivery O2 Flow Rate FiO2 01/17/17 06:14 97.9 105 18 131/78 (95) 94 01/16/17 18:00 98.6 86 17 154/73 (100) 97 Objective Remarks GENERAL: This is a well-nourished, well-developed patient, in no apparent distress. SKIN: No rashes, ecchymoses or lesions. Cool and dry. HEAD: Atraumatic. Normocephalic. EYES: Pupils equal round and reactive. Extraocular motions intact. No scleral icterus. No injection or drainage. ENT: Nose without bleeding or purulent drainage. Airway patent. NECK: Trachea midline. No lymphadenopathy. Supple and nontender. CARDIOVASCULAR: Regular rate and rhythm without murmurs, gallops, or rubs. RESPIRATORY: Clear to auscultation. Breath sounds equal bilaterally. No wheezes , rales, or rhonchi. GASTROINTESTINAL: Abdomen soft, non-tender, nondistended. No hepato- splenomegaly or guarding. MUSCULOSKELETAL: Extremities without clubbing, cyanosis, or edema. NEUROLOGICAL: Awake and alert. Cranial nerves II through XII intact. Motor and sensory grossly within normal limits. Five out of 5 muscle strength in all muscle groups. Speech was clear and fluent. A/P Assessment and Plan Ms. Patrick is 76 yo, with history of depression/anxiety, hypertension , left ventricular hypertrophy, and diabetes. Hypertension -Monitor. -Continue home metoprolol 100 mg po daily -elevations of SBP > 160 and/or DBP>90 to be treated with PRN hydralazine 10 mg q 8 hr Hyponatremia, resolving -recheck labs in am Na stable. Monitor -Replace sodium as needed. Recent history of acute kidney injury -Creatinine 0.83 -monitor status with labs -avoid nephrotoxins Depression -Treat per psychiatry DVT prophylaxis ambulation. GI prophylaxis GERD -famotidine 20 mg daily Discussed Condition With patient and nurse Gabriela Hankins MD Jan 17, 2017 07:23
[2017-01-17] MEDS: OLANZapine 2.5 MG TAB PO SCH ×2 (08:55→21:07)
[2017-01-17] MEDS: NICOTINE 21 MG/24 HR PATCH T-DERMAL SCH (08:55)
[2017-01-17] MEDS: VENLAFAXINE HCL XR 37.5 MG CAP PO SCH (08:55)
[2017-01-17] MEDS: REMOVE OLD NICOTINE PATCH T-DERMAL SCH (08:55)
[2017-01-17] MEDS: FAMOTIDINE 20 MG TAB PO SCH (08:56)
[2017-01-17 09:45] LABS: POTASSIUM 4.1 MEQ/L (3.5-5.1)
--- NOTE | 2017-01-17 14:49 | PD.PSY.CON ---
Provisional Diagnosis Admission Date Jan 15, 2017 at 15:28 [place]. Major depressive disorder with psychotic features History of Present Illness Service Psychiatry Consult Requested By Psychiatry Reason for Consult 2nd Opinion Primary Care Physician Cedrick Hernadez M.D. HPI Pts seen and discussed with staff. PT was admitted on [facility] for MDD with psychosis. Staff report that pt has been engaging in bizarre behavior on unit and expressing delusions that she is infected with HIV (pt is negative). She is taking medications and denies side effects. She admits to severe depression and states that she was non-compliant with medications at home. She denies SI/ HI. ew. Family psychiatric history: e Past psychiatric history: previous psychiatric diagnosis of depression and anxiety, one previous psychiatric admission ([facility] in 2011), no previous suicide attempt or history of self injurious behavior. Outpatient psychiatrist last seen one year ago. Previous psychiatric medications: remeron 15mg PO HS, aripiprazole 5mg PO daily. Denies history of abuse. Past medical history: Allergies: NKDA Social history: d Collateral contact: Joanna (daughter) [phone] Past Family Social History Coded Allergies: No Known Allergies (Verified , 11/21/16) Past Medical History HTN, pre-DM, HLD, GERD, history of RT adrenal gland tumor (last checked in ) Active Scripts Ciprofloxacin (Ciprofloxacin) 250 Mg Tab, 250 MG PO BID for Infection, #10 TAB 0 Refills Prov:Gabriela Hankins MD 01/15/17 Reported Medications Aripiprazole (Aripiprazole) 5 Mg Tab, 5 MG PO HS, #30 TAB 0 Refills 11/21/16 Ranitidine (Ranitidine) 150 Mg Tab, 150 MG PO BID for Heartburn Management, #60 TAB 0 Refills 11/21/16 [place]-3 Fatty Acids ([place] 3 1000 mg) 1 Cap Cap, 1 11/21/16 Metoprolol Tartrate (Metoprolol Tartrate) 100 Mg Tab, 100 MG PO DAILY, #30 TAB 0 Refills 11/21/16 Discontinued Scripts Hydroxyzine Pamoate (Vistaril) 50 Mg Cap, 50 MG PO QID Y for ANXIETY, #20 CAP 0 Refills Prov:Chin Caal MD 11/21/16 Current Medications Medications (Trade) Dose Ordered Sig/Keenan Route Start Time Stop Time Status Last Admin (Ativan) 0.5 mg Q12H PRN PO 01/15/17 15:15 (Ativan Inj) 0.5 mg Q12H PRN IM 01/15/17 15:15 (Tylenol) 650 mg Q4H PRN PO 01/15/17 15:15 (Milk Of Magnesia Liq) 30 ml DAILY PRN PO 01/15/17 15:15 (Mag-Al Plus Susp Liq) 30 ml Q6H PRN PO 01/15/17 15:15 (Habitrol 21 Mg Patch.24 Hr) 1 patch DAILY T-DERMAL 01/15/17 15:15 (ZyPREXA) 2.5 mg Q12HR PO 01/15/17 21:00 01/17/17 08:55 (Effexor Xr) 37.5 mg DAILY PO 01/16/17 09:00 01/17/17 08:55 Miscellaneous Information 1 DAILY T-DERMAL 01/16/17 09:00 (Apresoline) 10 mg Q8HR PRN PO 01/16/17 17:00 (Pepcid) 20 mg DAILY PO 01/17/17 09:00 Family Psych History maternal aunt committed suicide Social History Substance use history: ETOH use, last in 2016, drinks occasionally and usually 2 drinks, denies use of any other illegal substance. Denies use of previous rehab or detox. , three children (2 living), lives alone, supported on social security benefits. Highest education: 12th grade.Legal history: two DUIs in her 30s. Patient's Strengths (min. 2) verbal and communicative Physical Exam Vital Signs Vital Signs Date Time Temp Pulse Resp B/P (MAP) Pulse Ox O2 Delivery O2 Flow Rate FiO2 01/17/17 06:14 97.9 105 18 131/78 (95) 94 Lab Results Test 01/17/17 08:15 Blood Urea Nitrogen 10 MG/DL Creatinine 1.08 MG/DL Random Glucose 156 MG/DL Calcium Level 10.0 MG/DL Sodium Level 134 MEQ/L Potassium Level 4.1 MEQ/L Chloride Level 99 MEQ/L Carbon Dioxide Level 23.0 MEQ/L Anion Gap 12 MEQ/L Estimat Glomerular Filtration Rate 49 ML/MIN Mental Status Examination Appearance: Appropriate Consciousness: Alert Orientation: Person, Place, Date/Time Motor Activity: Normal gait Speech: Unremarkable, Hesitant, Slow Language: Adequate Fund of Knowledge: Adequate Attention and Concentration: Adequate Memory: Unremarkable Mood: Sad, Anxious Affect: Sad, Anxious Thought Process & Associations: Linear, Other Thought Content: Bizarre thinking, Delusional (of having AIDS) Hallucination Type: None Delusion Type: Other Suicidal Ideation: Yes Suicidal Plan: No Suicidal Intention: No Homicidal Ideation: No Homicidal Plan: No Homicidal Intention: No Insight: Poor Judgment: Poor Assessment & Plan Problem List: (1) Major depressive disorder with psychotic features ICD Codes: F32.3 - Major depressive disorder, single episode, severe with psychotic features Status: Chronic Assessment & Plan I agree that pt meets BA criteria. 2nd opinion paperwork completed Estimated LOS: Yue Lofton MD Jan 17, 2017 14:49
[2017-01-17 18:17] VITALS: BP 169/77; PULSE 85; RESP 18; TEMP 97.2; O2SAT 96
[2017-01-18 05:33] VITALS: BP 150/88; PULSE 98; RESP 18; TEMP 97.5; O2SAT 95
[2017-01-18 05:34] VITALS: BP 90/52; PULSE 65; RESP 16; TEMP 97.6; O2SAT 97
[2017-01-18] MEDS: FAMOTIDINE 20 MG TAB PO SCH (08:52)
[2017-01-18] MEDS: VENLAFAXINE HCL XR 37.5 MG CAP PO SCH (08:52)
[2017-01-18] MEDS: REMOVE OLD NICOTINE PATCH T-DERMAL SCH (08:53)
[2017-01-18] MEDS: NICOTINE 21 MG/24 HR PATCH T-DERMAL SCH (08:53)
[2017-01-18] MEDS ORDERED: METOPROLOL TARTRATE 100 MG TAB PO SCH (09:00)
[2017-01-18 09:32] VITALS: BP 107/77
--- NOTE | 2017-01-18 09:50 | HHI.PR ---
Subjective Remarks Written by Celia Willams, acting as scribe for Dr. Penn on 01/18/17 at 09: 51. Follow up visit HTN, hyponatremia. Patient seen and examined today. Reports she woke up dizzy with shoulder pain, dizziness that she needs to bend her neck forward to relieve it. She states she gets relief by doing that and has denied dizziness and pain after. Continues to appears depressed. Denies SOB/ dyspnea. Denies chest pain, palpitations. Denies fevers, chills, n/v/d. Denies dysuria. Objective Vitals Vital Signs Date Time Temp Pulse Resp B/P (MAP) Pulse Ox O2 Delivery O2 Flow Rate FiO2 01/18/17 09:32 107/77 (87) 01/18/17 05:33 97.5 98 18 150/88 (108) 95 01/17/17 18:17 97.2 85 18 169/77 (107) 96 Result Diagram: 01/17/17 0815 Objective Remarks GENERAL: This is a thinly appearing, well-developed patient, in no apparent distress. SKIN: Warm and dry. HEENT: Normocephalic. Pupils equal round and reactive. Nose without bleeding. Airway patent. NECK: Trachea midline. No JVD. Supple. CARDIOVASCULAR: Regular rate and rhythm systolic loud murmurs, gallops, or rubs. RESPIRATORY: Clear to auscultation. Breath sounds equal bilaterally. No wheezes , rales, or rhonchi. GASTROINTESTINAL: Abdomen soft, non-tender, nondistended. Bowel Sounds normoactive x4. MUSCULOSKELETAL: Extremities without clubbing, cyanosis, or edema. NEUROLOGICAL: Awake and alert. Oriented to time, place, person. No focal neuro deficit. Moves all extremities. Normal speech. A/P Problem List: (1) Major depressive disorder with psychotic features ICD Code: F32.3 - Major depressive disorder, single episode, severe with psychotic features Status: Chronic (2) Acute kidney injury ICD Code: N17.9 - Acute kidney failure, unspecified Assessment and Plan Ms. Patrick is 76 yo, with history of depression/anxiety, hypertension , left ventricular hypertrophy, and diabetes. Hypertension, controlled - Continue home metoprolol 100 mg po daily, will switch over to metoprolol 50 mg twice a day with hold parameters. Patient's blood pressure today was 107/ 77 - PRN hydralazine 10 mg q 8 hr Hyponatremia, resolving - recheck labs in am Na stable. Monitor. - Replace sodium as needed. Recent history of acute kidney injury - Creatinine 0.83 --> 1.08 - monitor status with labs - avoid nephrotoxins Depression -Treat per psychiatry DVT prophylaxis ambulation. Discussed with patient, nursing This note was transcribed by natalia Willams. I, Dr. Trevor Penn personally performed the history, physical exam, and medical decision making; and confirmed the accuracy of the information in the transcribed note. Authenticated by Dr. Trevor Penn on 01/18/17 at 09:51. Celia Padilla Jan 18, 2017 09:50 Trevor Penn MD Jan 18, 2017 09:50
[2017-01-18] MEDS: OLANZapine 2.5 MG TAB PO SCH ×2 (10:17→20:57)
[2017-01-18 11:25] LABS: BICARBONATE 23.7 MEQ/L (21.0-32.0); POTASSIUM 3.9 MEQ/L (3.5-5.1)
--- NOTE | 2017-01-18 14:34 | HHI.PYPN ---
Subjective Remarks Pt seen and discussed with staff. She remains depressed but has been less fixated on delusions. She is compliant with medications. No SI/HI Chief Complaint: worsening depression, SI, with delusions Mental Status Examination Appearance: Appropriate Consciousness: Alert Orientation: Person, Place, Date/Time Motor Activity: Normal gait Speech: Unremarkable, Hesitant, Slow Language: Adequate Fund of Knowledge: Adequate Attention and Concentration: Adequate Memory: Unremarkable Mood: Sad, Anxious Affect: Sad, Anxious Thought Process & Associations: Linear, Other Thought Content: Bizarre thinking, Delusional (of having AIDS) Hallucination Type: None Delusion Type: Other Suicidal Ideation: Yes Suicidal Plan: No Suicidal Intention: No Homicidal Ideation: No Homicidal Plan: No Homicidal Intention: No Insight: Poor Judgment: Poor Results Labs Test 01/18/17 10:38 Blood Urea Nitrogen 18 MG/DL Creatinine 1.44 MG/DL Random Glucose 146 MG/DL Calcium Level 9.5 MG/DL Sodium Level 135 MEQ/L Potassium Level 3.9 MEQ/L Chloride Level 101 MEQ/L Carbon Dioxide Level 23.7 MEQ/L Anion Gap 10 MEQ/L Estimat Glomerular Filtration Rate 35 ML/MIN Vitals/IOs Vital Signs Date Time Temp Pulse Resp B/P (MAP) Pulse Ox O2 Delivery O2 Flow Rate FiO2 01/18/17 09:32 107/77 (87) 01/18/17 05:33 97.5 98 18 95 Assessment & Plan Problem List: (1) Major depressive disorder with psychotic features ICD Codes: F32.3 - Major depressive disorder, single episode, severe with psychotic features Status: Chronic Assessment & Plan Continue current tx plan Estimated LOS: days Justification for Cont. Inpt. impairments in reality testing and self care Yue Lofton MD Jan 18, 2017 14:34
[2017-01-18 16:55] VITALS: BP 108/65; PULSE 110; RESP 18; TEMP 97.6; O2SAT 98
[2017-01-19] VITALS (7 sets, daily range): BP systolic 109–170; BP diastolic 52–82; PULSE 57–116; RESP 18; TEMP 97.9; O2SAT 98–99
[2017-01-19] MEDS: VENLAFAXINE HCL XR 37.5 MG CAP PO SCH (08:14)
[2017-01-19] MEDS: FAMOTIDINE 20 MG TAB PO SCH (08:15)
[2017-01-19] MEDS: OLANZapine 2.5 MG TAB PO SCH ×2 (08:15→20:51)
[2017-01-19] MEDS: REMOVE OLD NICOTINE PATCH T-DERMAL SCH (08:15)
[2017-01-19] MEDS: NICOTINE 21 MG/24 HR PATCH T-DERMAL SCH (08:15)
[2017-01-19] MEDS: METOPROLOL TARTRATE 50 MG TAB PO SCH ×2 (08:15→20:51)
--- NOTE | 2017-01-19 10:44 | HHI.PR ---
Subjective Remarks Written by Celia Willams, acting as scribe for Dr. Penn on 01/19/17 at 10: 44. Follow-up visit hypertension, hyponatremia. Patient seen and examined today. Continues to appear depressed. Reports poor appetite. Denies headaches, dizziness, chest pain, palpitations. Denies SOB/dyspnea. Denies dysuria Objective Vitals Vital Signs Date Time Temp Pulse Resp B/P (MAP) Pulse Ox O2 Delivery O2 Flow Rate FiO2 01/19/17 10:38 76 141/54 (83) 01/19/17 09:42 74 109/60 (76) 01/19/17 06:08 97.9 116 18 159/79 (105) 99 01/18/17 16:55 97.6 110 18 108/65 (79) 98 Result Diagram: 01/18/17 1038 Imaging Last Impressions Head CT 01/19/17 0000 Signed Impressions: Service Date/Time: Thursday, January 19, 2017 10:24 - CONCLUSION: Negative for an acute process. Richard Jimenez MD FACR Objective Remarks GENERAL: This is a thinly appearing, well-developed patient, in no apparent distress. SKIN: Warm and dry. HEENT: Normocephalic. Pupils equal round and reactive. Nose without bleeding. Airway patent. NECK: Trachea midline. No JVD. Supple. CARDIOVASCULAR: Regular rate and rhythm systolic loud murmurs, gallops, or rubs. RESPIRATORY: Clear to auscultation. Breath sounds equal bilaterally. No wheezes , rales, or rhonchi. GASTROINTESTINAL: Abdomen soft, non-tender, nondistended. Bowel Sounds normoactive x4. MUSCULOSKELETAL: Extremities without clubbing, cyanosis, or edema. NEUROLOGICAL: Awake and alert. Oriented to time, place. Normal speech. A/P Problem List: (1) Major depressive disorder with psychotic features ICD Code: F32.3 - Major depressive disorder, single episode, severe with psychotic features Status: Chronic (2) Acute kidney injury ICD Code: N17.9 - Acute kidney failure, unspecified Assessment and Plan Ms. Patrick is 76 yo, with history of depression/anxiety, hypertension , left ventricular hypertrophy, and diabetes. Hypertension, controlled - Continue home metoprolol 100 mg po daily, will switch over to metoprolol 50 mg twice a day with hold parameters. Patient's blood pressure today was 107/ 77 - PRN hydralazine 10 mg q 8 hr Hyponatremia, resolving - 134 --> 135 - improving - Replace sodium as needed. Recent history of acute kidney injury - Creatinine 0.83 --> 1.08 --> 1.44 - avoid nephrotoxins - Encourage PO fluids. Poor appetite possibly not hydrating well. - If patient continues with poor hydration consider transfer to medical psychiatry for IV fluids Depression -Treatment per psychiatry DVT prophylaxis ambulation. Discussed with patient, nursing This note was transcribed by natalia Willams. I, Dr. Trevor Penn personally performed the history, physical exam, and medical decision making; and confirmed the accuracy of the information in the transcribed note. Authenticated by Dr. Trevor Penn on 01/19/17 at 10:44. Celia Padilla Jan 19, 2017 10:44 Trevor Penn MD Jan 19, 2017 10:44
--- NOTE | 2017-01-19 10:46 | RADRPT ---
EXAM DATE/TIME: 01/19/2017 10:24 [place] COMPARISON: CT BRAIN W/O CONTRAST, November 21, 2016, 22:04. INDICATIONS : Patient fell RADIATION DOSE: 28.10 CTDIvol (mGy) MEDICAL HISTORY : Cardiovascular disease. Hypertension. SURGICAL HISTORY : None. ENCOUNTER: Initial ACUITY: 1 day PAIN SCALE: 0/10 LOCATION: cranial TECHNIQUE: Multiple contiguous axial images were obtained of the head. Using automated exposure control and adj ustment of the mA and/or kV according to patient size, radiation dose was kept as low as reasonably a chievable to obtain optimal diagnostic quality images. DICOM format image data is available electro nically for review and comparison. FINDINGS: CEREBRUM: The ventricles are normal for age. No evidence of midline shift, mass lesion, hemorrhage or acute in farction. No extra-axial fluid collections are seen. POSTERIOR FOSSA: The cerebellum and brainstem are intact. The 4th ventricle is midline. The cerebellopontine angle i s unremarkable. EXTRACRANIAL: The visualized portion of the orbits is intact. SKULL: The calvaria is intact. No evidence of skull fracture. CONCLUSION: Negative for an acute process. Richard Jimenez MD FACR on January 19, 2017 at 10:45 Board Certified Radiologist. This report was verified electronically.
[2017-01-19 13:57] LABS: HEMOGLOBIN A1a 0.9 %; HEMOGLOBIN A1b 1.7 %; HEMOGLOBIN Ao 84.8 %; HEMOGLOBIN LA1C 2.2 %; HEMOGLOBIN P3 5.4 %
--- NOTE | 2017-01-19 16:42 | HHI.PYPN ---
Subjective Remarks Patient seen for follow-up, chart reviewed. Discussion with nursing staff reported patient had fallen on today to get a drink of water in her room. Patient found lying in hospital bed after staff had helped her back onto the bed. Patient denies any pain anywhere but did report falling backwards sitting down after having felt dizzy. Nursing staff stated the patient had not eaten breakfast earlier today which patient confirmed. Vital signs have been stable today. Patient was encouraged to maintain good nutrition and adequate hydration which she agreed to. Patient reports her mood is "sad", reports having slept better last evening. Patient states that she has not had thoughts of having AIDS for a while. Patient reports being adherent to treatment. Patient also reports having been visited by her daughter over the weekend which she had reported did not think the patient is "not doing too good". Patient agrees to continue treatment. Chief Complaint: worsening depression, SI, with delusions Review of Systems Except as stated in HPI: all other systems reviewed are Neg Mental Status Examination Appearance: Appropriate Consciousness: Alert Orientation: Person, Place, Date/Time Motor Activity: Normal gait Speech: Unremarkable, Hesitant, Slow Language: Adequate Fund of Knowledge: Adequate Attention and Concentration: Adequate Memory: Unremarkable Mood: Sad Affect: Sad, Anxious Thought Process & Associations: Linear, Other Thought Content: Delusional (of having AIDS) Hallucination Type: None Delusion Type: Other Suicidal Ideation: Yes Suicidal Plan: No Suicidal Intention: No Homicidal Ideation: No Homicidal Plan: No Homicidal Intention: No Insight: Poor Judgment: Poor Results Labs Test 01/19/17 09:55 Hemoglobin A1c 5.8 % Vitals/IOs Vital Signs Date Time Temp Pulse Resp B/P (MAP) Pulse Ox O2 Delivery O2 Flow Rate FiO2 01/19/17 16:22 94 158/82 (107) 01/19/17 06:08 97.9 18 99 Assessment & Plan Problem List: (1) Major depressive disorder with psychotic features ICD Codes: F32.3 - Major depressive disorder, single episode, severe with psychotic features Status: Chronic Assessment & Plan Patient continues to report depressed mood although she does not endorse recent delusions of having AIDS stating that has been a while since she had these thoughts. We'll increase Effexor XR to 75 mg by mouth twice a day. Continue olanzapine 2.5 mg by mouth twice a day. Falls precautions. Encouraged maintenance of adequate nutritional intake and oral fluid intake to maintain hydration. Discharge planning in progress Justification for Cont. Inpt. Patient seen for follow-up, chart reviewed. Discharge Planning Patient possibly discharge to daughter's home 1 psychiatrically stable. Trevor Clarke MD Jan 19, 2017 16:42
[2017-01-20 05:57] VITALS: BP 118/68; PULSE 69; RESP 16; TEMP 97.8; O2SAT 95
[2017-01-20] MEDS: NICOTINE 21 MG/24 HR PATCH T-DERMAL SCH (09:00)
[2017-01-20] MEDS: REMOVE OLD NICOTINE PATCH T-DERMAL SCH (09:00)
[2017-01-20] MEDS: OLANZapine 2.5 MG TAB PO SCH ×2 (09:55→20:48)
[2017-01-20] MEDS: VENLAFAXINE HCL XR 37.5 MG CAP PO SCH (09:55)
[2017-01-20] MEDS: METOPROLOL TARTRATE 50 MG TAB PO SCH ×2 (09:55→20:48)
[2017-01-20] MEDS: FAMOTIDINE 20 MG TAB PO SCH (09:55)
--- NOTE | 2017-01-20 10:28 | HHI.PR ---
Subjective Remarks Written by Susan Elam, acting as scribe for Dr. Penn on 01/20/17 at 10: 28. Follow-up on patient with hypertension, hyponatremia. Patient seen and examined. Patient status post fall yesterday complaining of right ankle pain. X-ray in the room to obtain film. CTA head is negative. Patient reports intermittent dizziness. She denies any chest pain or shortness of breath. Denies any nausea, vomiting or abdominal pain. Objective Vitals Vital Signs Date Time Temp Pulse Resp B/P (MAP) Pulse Ox O2 Delivery O2 Flow Rate FiO2 01/20/17 05:57 97.8 69 16 118/68 (85) 95 01/19/17 18:00 97.9 94 18 158/52 (87) 98 01/19/17 16:22 94 158/82 (107) 01/19/17 12:36 68 126/69 (88) 01/19/17 11:29 57 170/77 (108) 01/19/17 10:38 76 141/54 (83) Result Diagram: 01/18/17 1038 Imaging Last Impressions Head CT 01/19/17 0000 Signed Impressions: Service Date/Time: Thursday, January 19, 2017 10:24 - CONCLUSION: Negative for an acute process. Richard Jimenez MD FACR Objective Remarks GENERAL: This is a thinly appearing, well-developed patient, in no apparent distress. Awake and alert. SKIN: Warm and dry. HEENT: Normocephalic. EOMI. Nose without bleeding. Airway patent. NECK: Trachea midline. Supple. CARDIOVASCULAR: Regular rate and rhythm systolic loud murmurs, gallops, or rubs. RESPIRATORY: Clear to auscultation. Breath sounds equal bilaterally. No wheezes , rales, or rhonchi. GASTROINTESTINAL: Abdomen soft, non-tender, nondistended. Bowel Sounds normoactive x4. MUSCULOSKELETAL: Extremities without clubbing or cyanosis. Right ankle with some surrounding edema noted. Tender to palpation. Limited range of motion secondary to pain. NEUROLOGICAL: Awake and alert. Oriented to time, place. Normal speech. Medications and IVs Current Medications Medications (Trade) Dose Ordered Sig/Keenan Route Start Time Stop Time Status Last Admin (Ativan) 0.5 mg Q12H PRN PO 01/15/17 15:15 (Ativan Inj) 0.5 mg Q12H PRN IM 01/15/17 15:15 (Tylenol) 650 mg Q4H PRN PO 01/15/17 15:15 01/20/17 09:55 (Milk Of Magnesia Liq) 30 ml DAILY PRN PO 01/15/17 15:15 (Mag-Al Plus Susp Liq) 30 ml Q6H PRN PO 01/15/17 15:15 (Habitrol 21 Mg Patch.24 Hr) 1 patch DAILY T-DERMAL 01/15/17 15:15 (ZyPREXA) 2.5 mg Q12HR PO 01/15/17 21:00 01/20/17 09:55 Miscellaneous Information 1 DAILY T-DERMAL 01/16/17 09:00 (Apresoline) 10 mg Q8HR PRN PO 01/16/17 17:00 (Pepcid) 20 mg DAILY PO 01/17/17 09:00 01/20/17 09:55 (Lopressor) 50 mg BID PO 01/19/17 09:00 01/20/17 09:55 (Effexor Xr) 75 mg DAILY PO 01/20/17 09:00 01/20/17 09:55 A/P Problem List: (1) Major depressive disorder with psychotic features ICD Code: F32.3 - Major depressive disorder, single episode, severe with psychotic features Status: Chronic (2) Acute kidney injury ICD Code: N17.9 - Acute kidney failure, unspecified Assessment and Plan Ms. Patrick is 76 yo, with history of depression/anxiety, hypertension , left ventricular hypertrophy, and diabetes. Hypertension, controlled - Home metoprolol 100 mg po daily changed to metoprolol 50 mg twice a day with hold parameters. - BP currently 118/68. - Patient with complaints of intermittent dizziness. Questionable postural hypotension. Orthostatic blood pressure measurements ordered. - PRN hydralazine 10 mg q 8 hr Hyponatremia, resolving - 134 --> 135 - improving - Replace sodium as needed. - repeat sodium level pending. Recent history of acute kidney injury - Creatinine 0.83 --> 1.08 --> 1.44 - avoid nephrotoxins - Encourage PO fluids. Poor appetite possibly not hydrating well. - If patient continues with poor hydration consider transfer to medical psychiatry for IV fluids - repeat BMP pending for today Right ankle pain s/p fall - CT of the head personally reviewed and unremarkable. - X-ray of the right ankle personally reviewed showing a nondisplaced fracture of the distal fibula with overlying soft tissue swelling - Consult Orthopedics - Check orthostatic blood pressure measurements for possible postural hypotension causing fall - NWB RLE until evaluated by Ortho then per their recommendations. Depression -Treatment per psychiatry DVT prophylaxis ambulation. Discussed with patient, nursing This note was transcribed by natalia Elam. I, Dr. Trevor Penn personally performed the history, physical exam, and medical decision making; and confirmed the accuracy of the information in the transcribed note. Authenticated by Dr. Trevor Penn on 01/20/17 at 10:28. Susan Elam Jan 20, 2017 10:28 Trevor Penn MD Jan 20, 2017 10:28
--- NOTE | 2017-01-20 10:35 | RADRPT ---
EXAM DATE/TIME: 01/20/2017 09:40 [facility] COMPARISON: No previous studies available for comparison. INDICATIONS : Fall yesterday. Pain on lateral side. MEDICAL HISTORY : Hypertension. SURGICAL HISTORY : None. ENCOUNTER: Initial ACUITY: 1 day PAIN SCORE: 6/10 LOCATION: Right Ankle FINDINGS: A nondisplaced fracture is identified of the distal fibula. There is overlying soft tissue swelling. Tibiotalar joint appears intact. Ankle mortise is well-maintained. CONCLUSION: Nondisplaced fracture of the distal fibula with overlying soft tissue swelling. Scott Jean-Baptiste MD on January 20, 2017 at 10:32 Board Certified Radiologist. This report was verified electronically.
--- NOTE | 2017-01-20 12:28 | HHI.PYPN ---
Subjective Remarks Patient seen for follow-up, chart reviewed. Patient found sitting on hospital bed, cooperative today. Patient states that she's been having some right ankle pain with some swelling noted. Patient states that she was eating well and trying to stay hydrated her today. Patient slept well last night, mood has been "could be better" and reports her depression being 8 out of 10 (10 being at its worst). Patient states that the "obsessive thoughts" are gone, last time being yesterday. Patient states that she continues to have the stuff 2-3 times a day but short-lived. Patient continues to report having suicidal ideations "once in a while" but are passive. Patient states that she plans to go to groups today. Patient noted to be more reactive pain and engaging in interview. Patient states that she was visited by her daughter last night which daughter felt she was doing better. Chief Complaint: worsening depression, SI, with delusions Review of Systems Except as stated in HPI: all other systems reviewed are Neg Mental Status Examination Appearance: Appropriate Consciousness: Alert Orientation: Person, Place, Date/Time Motor Activity: Normal gait Speech: Hesitant Language: Adequate Fund of Knowledge: Adequate Attention and Concentration: Adequate Memory: Unremarkable Mood: Sad, Other ("could be better") Affect: Sad Thought Process & Associations: Linear, Other Thought Content: Delusional (of having AIDS but less so recently) Hallucination Type: None Delusion Type: Other Suicidal Ideation: Yes Suicidal Plan: No Suicidal Intention: No Homicidal Ideation: No Homicidal Plan: No Homicidal Intention: No Insight: Poor Judgment: Poor Results Vitals/IOs Vital Signs Date Time Temp Pulse Resp B/P (MAP) Pulse Ox O2 Delivery O2 Flow Rate FiO2 01/20/17 05:57 97.8 69 16 118/68 (85) 95 Assessment & Plan Problem List: (1) Major depressive disorder with psychotic features ICD Codes: F32.3 - Major depressive disorder, single episode, severe with psychotic features Status: Chronic Assessment & Plan Patient at this time report pain on the right ankle and also noted to have some swelling noted. X-ray of right ankle reported nondisplaced fracture of the distal fibula. Primary medical team ordered orthopedic consult and nonweightbearing for now. Patient to continue treatment, recommendations as per primary medical team and orthopedic consult. Discharge planning in progress Justification for Cont. Inpt. At risk for further decompensation if at lower level of care Discharge Planning Patient likely to return to her daughter's home was psychiatrically stable Trevor Clarke MD Jan 20, 2017 12:28
[2017-01-20 18:47] VITALS: BP 142/62; PULSE 72; RESP 16; TEMP 97.6; O2SAT 97
[2017-01-20 20:52] LABS: BICARBONATE 25.8 MEQ/L (21.0-32.0); POTASSIUM 4.8 MEQ/L (3.5-5.1)
[2017-01-21 05:20] VITALS: BP 64/42; PULSE 91; RESP 18; TEMP 97.8; O2SAT 97
[2017-01-21 06:15] VITALS: BP_SYST 100; BP_SYST 60; BP_SYST 92; BP_DIAS 40; BP_DIAS 58; BP_DIAS 60
--- NOTE | 2017-01-21 08:37 | MB ---
cc: BONDSJALIL DATE OF CONSULTATION 01/20/2017 CHIEF COMPLAINT Right ankle pain status post fall. HISTORY OF PRESENT ILLNESS The patient is a pleasant 77-year-old white female who was admitted to the psychiatric unit for multiple issues. She says that yesterday she was in the psychiatric unit when she pouring water out of a pitcher and she spilled some of the water on the floor. She stood up to stand and she slipped on the water. She rolled her ankle. She states she had immediate pain in the ankle. Since then she states that the pain has started to improve. She states she has been full weightbearing. She reports that she has a walker that was given to her by the staff, however, she does not think that she needs it. She has been walking with full weightbearing with minimal discomfort. She reports mild pain on the outside part of the ankle as well as pain in the inside part of the ankle. She notices that she does have some swelling. She denies any numbness, tingling or radiation of symptoms. REVIEW OF SYSTEMS Negative except for what is in the HPI. ALLERGIES No known allergies. MEDICATIONS For complete list of medications please see the patient's MAR. PAST FAMILY HISTORY Noncontributory. SOCIAL HISTORY The patient reports that she uses alcohol occasionally. Denies illegal substance abuse. Denies smoking. PHYSICAL EXAMINATION VITAL SIGNS: She had a temperature 97.8, pulse is 69 beats per minute, respiratory rate of 16, blood pressure 118/68 and O2 saturation 95 on room air. GENERAL: Well-developed, well-nourished 77-year-old white female in no acute distress. She is ambulating with a walker. HEAD: Normocephalic, atraumatic. EARS: Hearing intact bilaterally. EYES: Extraocular motion is intact. Pupils are equal, round react to light. NEURO: Cranial nerves II-XII are grossly intact. NECK: Supple. No evidence of lymphadenopathy. ABDOMEN: Soft, nontender, nondistended. LUNGS: No use of accessory muscles while breathing with no evidence of auditory wheezes. HEART: No grade 4 murmur was present. MUSCULOSKELETAL: Right ankle 2+ swelling of the lateral ankle. She has mild tenderness to palpation of the lateral malleolus. She also has mild tenderness to palpation of the deltoid ligament on the medial side. She has full dorsiflexion, plantar flexion with minimal discomfort. She is nontender with no instability with inversion or eversion stress test. She has a negative anterior drawer test. She has full sensation distally. She has full movement of the knee and hip with no pain. Left lower extremity full motion of the hip, knee, ankle and toes and no pain with full sensation distally. IMAGING STUDIES X-rays reviewed from [facility] which show a nondisplaced right distal fibula fracture. It is anatomically aligned. ASSESSMENT Nondisplaced right fibular fracture. PLAN At this point if the fracture stays aligned as it is now it should do very well with nonoperative management. This is not a surgical case at this time. I would recommend placing her in a fracture boot. She will wear it at all time. She will remain 50% weightbearing while wearing the boot. As long as it maintains its current position this should do well conservatively. She will follow up in the office on an outpatient basis with Dr. Bonds or his PA in 2 weeks to followup exam. She understood and agreed with this plan and the above patient was reviewed and discussed with Dr. Bonds and he agrees to the above plan. Thank you for this consultation. Dictated by: Alfred Hutson PA-C I reviewed history, past medical history, social history, review of systems, physical exam, radiographs, assessment, and plan. Plan on nonoperative treatment. A mid-level provider in my office (nurse practitioner or physician assistant foreman) may see this patient on follow-up visits and continue to implement the objectives of this plan including: Starting or adjusting medications, injections, cast application, orthotics, brace application, physical therapy, radiological studies (including x-ray, MRI, CT, ultrasound, bone scan), vascular studies, neurologic studies, specialist consultation, and proceeding with surgical management, as appropriate. MD NAI Suarez/SHARATH /4:33 PM /8:32 AM JOSE
[2017-01-21] MEDS: FAMOTIDINE 20 MG TAB PO SCH (08:49)
[2017-01-21] MEDS: VENLAFAXINE HCL XR 37.5 MG CAP PO SCH (08:49)
[2017-01-21] MEDS: METOPROLOL TARTRATE 50 MG TAB PO SCH ×2 (08:50→21:23)
[2017-01-21] MEDS: OLANZapine 2.5 MG TAB PO SCH ×2 (08:50→21:23)
[2017-01-21] MEDS: NICOTINE 21 MG/24 HR PATCH T-DERMAL SCH (09:00)
[2017-01-21] MEDS: REMOVE OLD NICOTINE PATCH T-DERMAL SCH (09:00)
--- NOTE | 2017-01-21 10:30 | HHI.PR ---
Subjective Remarks patient seen and examined states the swelling in her right ankle has gone down some denies any significant pain Objective Vitals Vital Signs Date Time Temp Pulse Resp B/P (MAP) Pulse Ox O2 Delivery O2 Flow Rate FiO2 01/21/17 06:15 100/60 (73) 92/58 (69) 60/40 (47) 01/21/17 05:20 97.8 91 18 64/42 (49) 97 01/20/17 18:47 97.6 72 16 142/62 (88) 97 Result Diagram: 01/20/17 1734 Imaging Last Impressions Ankle X-Ray 01/20/17 0000 Signed Impressions: Service Date/Time: Friday, January 20, 2017 09:40 - CONCLUSION: Nondisplaced fracture of the distal fibula with overlying soft tissue swelling. Scott Jean-Baptiste MD Head CT 01/19/17 0000 Signed Impressions: Service Date/Time: Thursday, January 19, 2017 10:24 - CONCLUSION: Negative for an acute process. Richard Jimenez MD FACR Objective Remarks GENERAL: NAD SKIN: Warm and dry. HEAD: Normocephalic. EYES: No scleral icterus. No injection or drainage. NECK: Supple, trachea midline. No JVD or lymphadenopathy. CARDIOVASCULAR: Regular rate and rhythm without murmurs, gallops, or rubs. RESPIRATORY: Breath sounds equal bilaterally. No accessory muscle use. GASTROINTESTINAL: Abdomen soft, non-tender, nondistended. MUSCULOSKELETAL: No cyanosis, or edema. mildly TTP right ankle BACK: Nontender without obvious deformity. No CVA tenderness. A/P Problem List: (1) Major depressive disorder with psychotic features ICD Code: F32.3 - Major depressive disorder, single episode, severe with psychotic features Status: Chronic (2) Acute kidney injury ICD Code: N17.9 - Acute kidney failure, unspecified Assessment and Plan Ms. Patrick is 76 yo, with history of depression/anxiety, hypertension , left ventricular hypertrophy, and diabetes. Hypertension, controlled - Home metoprolol 100 mg po daily changed to metoprolol 50 mg twice a day with hold parameters. - Patient with complaints of intermittent dizziness. Orthostatic blood pressure measurements ordered. - PRN hydralazine 10 mg q 8 hr Hyponatremia, resolving - 134 --> 135 - improving - Replace sodium as needed. Recent history of acute kidney injury - Creatinine 0.83 --> 1.08 --> 1.44 - avoid nephrotoxins - Encourage PO fluids. Poor appetite possibly not hydrating well. Nondisplaced right fibular fracture - X-ray of the right ankle personally reviewed showing a nondisplaced fracture of the distal fibula with overlying soft tissue swelling - Appreciate input from Orthopedics - Conservative management with Fracture boot and 50% WEIGHTBEARING Depression -Treatment per psychiatry DVT prophylaxis ambulation. Trevor Penn MD Jan 21, 2017 10:30
--- NOTE | 2017-01-21 10:59 | PD.TTN ---
Patient Problems 1. Discharge planning 2. Medication compliance 3. Knowledge deficit 4. Lack of coping skills Progress Toward Goals Provider Present: Dr. Yanely Clarke Provider Input: Dr. Clarke reported that the patient sustained a fracture in her foot and is waiting for a boot. Per Dr. Clarke, the patient remains depressed, with ongoing suicidal ideations. Dr. Clarke requested this counselor contact patient's daughter to discuss possible discharge by the end of the week Psychiatric Counselors Present: CLIFFORD Garcia Psych Therapist Input: Counselor reported the patient remains compliant with medications with depressed mood and affect. Patient remains tearful and shows little insight into her depression. Patient has been refusing food and water. She does report that she wants to go home, however, this counselor does not feel patient should be discharged until her mood improves as she is a high risk for suicide and failure to thrive. Group Spec/RT/OT/ACKERMAN Present: Jamie Ann OT Group Spec/RT/OT/ACKERMAN Input: Kyree reports limited attendence at groups. Discharge Plan Patient's choice of Provider Documentation Scribe: CLIFFORD Garcia Date Resolved: Jan 21, 2017 Love Price Jan 21, 2017 10:59
--- NOTE | 2017-01-21 15:03 | HHI.PYPN ---
Subjective Remarks Patient seen for follow, chart review. Patient found standing near the door of her room and was asked to go back and sit on her hospital bed due to concern of a recent nondisplaced fracture of her right fibula. Discussion with nursing staff reported the patient was seen by orthopedic service and was recommending fracture but with 50% weightbearing. Patient noted to be dysthymic today although reporting mood being "better". She states that she had spoken with her daughter last evening and reported that her daughter "thinks I'm doing better". Patient states that she is no longer having these intrusive thoughts of her being infected with AIDS stated that she has not had recurrence of these thoughts for the past few days. Patient was offered wheelchair to be overly taken to have breakfast to 2 a recent fracture but became upset stated that she does not want people think that she is in the wheelchair. Breakfast was offered to to be brought to her which she also was not wanting but was reminded that she needs to improve her nutritional intake which she agreed to. Patient during interview began to become tearful stated "I don't want to be me anymore" . Patient denies any suicide ideation at this time but continues to be noted to be very depressed. Chief Complaint: worsening depression, SI, with delusions Review of Systems Except as stated in HPI: all other systems reviewed are Neg Mental Status Examination Appearance: Appropriate Consciousness: Alert (but with poor eye contact) Orientation: Person, Place, Date/Time Motor Activity: Normal gait Speech: Hesitant, Slow, Other (low volume) Language: Adequate Fund of Knowledge: Adequate Attention and Concentration: Adequate Memory: Unremarkable Mood: Sad, Other ("better") Affect: Sad, Other (dysthymic) Thought Process & Associations: Linear, Other Thought Content: Delusional (denies recent thoughts of having AIDS) Hallucination Type: None Delusion Type: Other Suicidal Ideation: Yes Suicidal Plan: No Suicidal Intention: No Homicidal Ideation: No Homicidal Plan: No Homicidal Intention: No Insight: Poor Judgment: Poor Results Labs Labs reviewed. Test 01/20/17 17:34 Blood Urea Nitrogen 23 MG/DL Creatinine 1.14 MG/DL Random Glucose 104 MG/DL Calcium Level 10.1 MG/DL Sodium Level 133 MEQ/L Potassium Level 4.8 MEQ/L Chloride Level 98 MEQ/L Carbon Dioxide Level 25.8 MEQ/L Anion Gap 9 MEQ/L Estimat Glomerular Filtration Rate 46 ML/MIN Vitals/IOs Vital Signs Date Time Temp Pulse Resp B/P (MAP) Pulse Ox O2 Delivery O2 Flow Rate FiO2 01/21/17 06:15 100/60 (73) 92/58 (69) 60/40 (47) 01/21/17 05:20 97.8 91 18 97 Assessment & Plan Problem List: (1) Major depressive disorder with psychotic features ICD Codes: F32.3 - Major depressive disorder, single episode, severe with psychotic features Status: Chronic Assessment & Plan Patient at this time continues to be noted very depressed, but less intrusive thoughts of being effective AIDS, continues to have thoughts of not wanting to be alive. Patient with poor nutritional intake. Will consult dietary consult to assess for diet recommendations. Patient continues with hyponatremia and decreased renal function which primary medical team is following. Recommendations as per primary medical team. As per orthopedics consult patient her remain on fracture boot and be 50% weightbearing will follow up as an outpatient postdischarge. Continue to encourage by mouth intake of fluids for hydration as well as with meals. Falls precautions. We'll continue current treatment for now. Discharge planning in progress Justification for Cont. Inpt. At risk for further decompensation if at lower level of care Discharge Planning Patient likely to be discharged back to her daughter's residence once psychiatrically stable. Trevor Clarke MD Jan 21, 2017 15:03
[2017-01-21 18:00] VITALS: BP 106/56; PULSE 69; RESP 16; TEMP 97.7; O2SAT 97
[2017-01-22 05:40] VITALS: BP 101/58; PULSE 74; RESP 16; TEMP 97.3; O2SAT 93
[2017-01-22] MEDS: OLANZapine 2.5 MG TAB PO SCH ×2 (08:30→20:27)
[2017-01-22] MEDS: VENLAFAXINE HCL XR 37.5 MG CAP PO SCH (08:31)
[2017-01-22] MEDS: FAMOTIDINE 20 MG TAB PO SCH (08:31)
[2017-01-22 08:44] VITALS: BP 74/47; PULSE 81; RESP 15; TEMP 98.6
[2017-01-22] MEDS: NICOTINE 21 MG/24 HR PATCH T-DERMAL SCH (08:48)
[2017-01-22] MEDS: METOPROLOL TARTRATE 50 MG TAB PO SCH ×2 (08:48→20:27)
[2017-01-22] MEDS: REMOVE OLD NICOTINE PATCH T-DERMAL SCH (08:49)
--- NOTE | 2017-01-22 10:19 | HHI.PR ---
Subjective Remarks Patient seen and examined Denies any pain to right ankle. BP soft Objective Vitals Vital Signs Date Time Temp Pulse Resp B/P (MAP) Pulse Ox O2 Delivery O2 Flow Rate FiO2 01/22/17 08:44 98.6 81 15 74/47 (56) 01/22/17 05:40 97.3 74 16 101/58 (72) 93 Manual Cuff/Auscultation 01/21/17 18:00 97.7 69 16 106/56 (73) 97 Result Diagram: 01/20/17 9950 Objective Remarks GENERAL: NAD SKIN: Warm and dry. HEAD: Normocephalic. EYES: No scleral icterus. No injection or drainage. NECK: Supple, trachea midline. No JVD or lymphadenopathy. CARDIOVASCULAR: Regular rate and rhythm without murmurs, gallops, or rubs. RESPIRATORY: Breath sounds equal bilaterally. No accessory muscle use. GASTROINTESTINAL: Abdomen soft, non-tender, nondistended. MUSCULOSKELETAL: No cyanosis, or edema. Ankle boot on right foot BACK: Nontender without obvious deformity. No CVA tenderness. A/P Problem List: (1) Major depressive disorder with psychotic features ICD Code: F32.3 - Major depressive disorder, single episode, severe with psychotic features Status: Chronic (2) Acute kidney injury ICD Code: N17.9 - Acute kidney failure, unspecified Assessment and Plan Ms. Patrick is 76 yo, with history of depression/anxiety, hypertension , left ventricular hypertrophy, and diabetes. Hypertension, controlled -Decrease metoprolol to 25 mg po twice a day with hold parameters. - Patient with complaints of intermittent dizziness. Orthostatic blood pressure measurements ordered. - PRN hydralazine 10 mg q 8 hr Hyponatremia, resolving - 134 --> 135 - improving - Replace sodium as needed. Recent history of acute kidney injury - Creatinine 0.83 --> 1.08 --> 1.44 - avoid nephrotoxins - Encourage PO fluids. Poor appetite possibly not hydrating well. Nondisplaced right fibular fracture - X-ray of the right ankle personally reviewed showing a nondisplaced fracture of the distal fibula with overlying soft tissue swelling - Appreciate input from Orthopedics - Conservative management with Fracture boot and 50% WEIGHTBEARING Depression -Treatment per psychiatry DVT prophylaxis ambulation. Trevor Penn MD Jan 22, 2017 10:19
--- NOTE | 2017-01-22 16:50 | HHI.PYPN ---
Subjective Remarks Patient seen for follow-up, chart reviewed. Patient found sitting in day room, noted to continue with minimal engagement in interview. Patient states that she is feeling "ok but not great". She is noted to be wearing fracture boot and reports mild pain. She denies resurgence of intrusive delusions of having AIDS but continues to be noted to be very depressed with noted psychomotor retardation and poor eye contact. Patient states that she expects to have a visit from her daughter later this evening. Patient continues to have vague suicidal ideations but does not elaborate. Chief Complaint: worsening depression, SI, with delusions Review of Systems Except as stated in HPI: all other systems reviewed are Neg Mental Status Examination Appearance: Appropriate Consciousness: Alert (but with poor eye contact) Orientation: Person, Place, Date/Time Motor Activity: Normal gait Speech: Hesitant, Slow, Other (low volume) Language: Adequate Fund of Knowledge: Adequate Attention and Concentration: Adequate Memory: Unremarkable Mood: Sad, Other ("better") Affect: Sad, Other (dysthymic) Thought Process & Associations: Linear, Other Thought Content: Delusional (denies recent thoughts of having AIDS) Hallucination Type: None Delusion Type: Other Suicidal Ideation: Yes Suicidal Plan: No Suicidal Intention: No Homicidal Ideation: No Homicidal Plan: No Homicidal Intention: No Insight: Poor Judgment: Poor Results Vitals/IOs Vital Signs Date Time Temp Pulse Resp B/P (MAP) Pulse Ox O2 Delivery O2 Flow Rate FiO2 01/22/17 08:44 98.6 81 15 74/47 (56) 01/22/17 05:40 93 Assessment & Plan Problem List: (1) Major depressive disorder with psychotic features ICD Codes: F32.3 - Major depressive disorder, single episode, severe with psychotic features Status: Chronic Assessment & Plan Patient continues to be noted to be depressed with mild improvement. Will increase venlafaxine to 75mg PO AM/37.5mg PM, continue olanzapine 2.5mg PO HS. Continue to encourage patient to maintain adequate nutrition, participation in groups and activities and less isolation. Discharge planning in progress. Justification for Cont. Inpt. At risk for further decompensation if at lower level of care. Discharge Planning Patient likely to return back to daughter's home once psychiatrically stable. Trevor Clarke MD Jan 22, 2017 16:50
[2017-01-22 17:46] VITALS: BP 139/68; PULSE 77; RESP 17; TEMP 97.6; O2SAT 94
[2017-01-22] MEDS ORDERED: PILL SPLITTER OTHER PRN (19:15)
[2017-01-23 06:39] VITALS: BP 151/70; PULSE 71; RESP 17; TEMP 97.4
[2017-01-23] MEDS: OLANZapine 2.5 MG TAB PO SCH ×2 (08:19→21:08)
[2017-01-23] MEDS: FAMOTIDINE 20 MG TAB PO SCH (08:19)
[2017-01-23] MEDS: VENLAFAXINE HCL XR 37.5 MG CAP PO SCH (08:19)
[2017-01-23] MEDS: NICOTINE 21 MG/24 HR PATCH T-DERMAL SCH (08:19)
[2017-01-23] MEDS: METOPROLOL TARTRATE 50 MG TAB PO SCH ×2 (08:19→21:00)
[2017-01-23] MEDS: REMOVE OLD NICOTINE PATCH T-DERMAL SCH (08:20)
--- NOTE | 2017-01-23 11:59 | HHI.PR ---
Subjective Remarks Patient seen and examined She was tolerating by mouth without any competition nausea and vomiting Pain to right ankle well controlled Objective Vitals Vital Signs Date Time Temp Pulse Resp B/P (MAP) Pulse Ox O2 Delivery O2 Flow Rate FiO2 01/23/17 06:39 97.4 71 17 151/70 (97) 01/22/17 17:46 97.6 77 17 139/68 (91) 94 Result Diagram: 01/20/17 1708 Objective Remarks GENERAL: NAD SKIN: Warm and dry. HEAD: Normocephalic. EYES: No scleral icterus. No injection or drainage. NECK: Supple, trachea midline. No JVD or lymphadenopathy. CARDIOVASCULAR: Regular rate and rhythm without murmurs, gallops, or rubs. RESPIRATORY: Breath sounds equal bilaterally. No accessory muscle use. GASTROINTESTINAL: Abdomen soft, non-tender, nondistended. MUSCULOSKELETAL: No cyanosis, or edema. Ankle boot on right foot BACK: Nontender without obvious deformity. No CVA tenderness. A/P Problem List: (1) Major depressive disorder with psychotic features ICD Code: F32.3 - Major depressive disorder, single episode, severe with psychotic features Status: Chronic (2) Acute kidney injury ICD Code: N17.9 - Acute kidney failure, unspecified Assessment and Plan Ms. Patrick is 76 yo, with history of depression/anxiety, hypertension , left ventricular hypertrophy, and diabetes. Hypertension, controlled -Continue metoprolol 25 mg po twice a day with hold parameters. - Orthostatic blood pressure measurements ordered. - PRN hydralazine 10 mg q 8 hr Hyponatremia, resolving - 134 --> 135 - improving - Replace sodium as needed. Recent history of acute kidney injury - Creatinine 0.83 --> 1.08 --> 1.44 - avoid nephrotoxins - Encourage PO fluids. Poor appetite possibly not hydrating well. Nondisplaced right fibular fracture - X-ray of the right ankle personally reviewed showing a nondisplaced fracture of the distal fibula with overlying soft tissue swelling - Appreciate input from Orthopedics - Conservative management with Fracture boot and 50% WEIGHTBEARING Depression -Treatment per psychiatry DVT prophylaxis ambulation. [facility] with sign off and reconsult when necessary Trevor Penn MD Jan 23, 2017 11:59
--- NOTE | 2017-01-23 13:16 | HHI.PYPN ---
Subjective Remarks Patient seen for follow-up, chart reviewed. Discussion with nursing staff reported patient is calm, feeling better but continues to have flat affect, eating better. Patient found in room and agreed to join activities. She states that she continues to feel "low" but "sometimes a little better but doesn't last too long". Patient continues to have thoughts of not wanting to be alive. Chief Complaint: worsening depression, SI, with delusions Review of Systems Except as stated in HPI: all other systems reviewed are Neg Mental Status Examination Appearance: Appropriate Consciousness: Alert (but with poor eye contact) Orientation: Person, Place, Date/Time Motor Activity: Normal gait Speech: Hesitant, Slow, Other (low volume) Language: Adequate Fund of Knowledge: Adequate Attention and Concentration: Adequate Memory: Unremarkable Mood: Sad, Other ("better") Affect: Sad, Other (dysthymic) Thought Process & Associations: Linear Thought Content: Delusional (denies recent thoughts of having AIDS) Hallucination Type: None Delusion Type: Other Suicidal Ideation: Yes Suicidal Plan: No Suicidal Intention: No Homicidal Ideation: No Homicidal Plan: No Homicidal Intention: No Insight: Poor Judgment: Poor Results Vitals/IOs Vital Signs Date Time Temp Pulse Resp B/P (MAP) Pulse Ox O2 Delivery O2 Flow Rate FiO2 01/23/17 06:39 97.4 71 17 151/70 (97) 01/22/17 17:46 94 Assessment & Plan Problem List: (1) Major depressive disorder with psychotic features ICD Codes: F32.3 - Major depressive disorder, single episode, severe with psychotic features Status: Chronic Assessment & Plan Patient continues to feel depressed with thoughts of not wanting to be alive, although with more engagement and more visible and less isolative. Increase venlafaxine 75mg PO BID. Continue to encourage patient to maintain hygiene and participate in groups and activities. Discharge planning in progress. Fall precautions. Justification for Cont. Inpt. At risk for further decompensation if at lower level of care. Discharge Planning Patient may return back to her daughter's residence once psychiatrically stable. Trevor Clarke MD Jan 23, 2017 13:16
[2017-01-23] MEDS ORDERED: VENLAFAXINE HCL 25 MG TAB PO SCH ×2 (16:00)
[2017-01-23] MEDS: VENLAFAXINE HCL XR 75 MG CAP PO SCH (16:00)
[2017-01-23 18:02] VITALS: BP 96/56; PULSE 76; RESP 16; TEMP 98.1; O2SAT 99
[2017-01-24 06:43] VITALS: BP 168/77; PULSE 83; RESP 16; TEMP 97.1; O2SAT 100
[2017-01-24] MEDS: METOPROLOL TARTRATE 50 MG TAB PO SCH ×2 (08:23→20:35)
[2017-01-24] MEDS: FAMOTIDINE 20 MG TAB PO SCH (08:23)
[2017-01-24] MEDS: VENLAFAXINE HCL XR 37.5 MG CAP PO SCH (08:23)
[2017-01-24] MEDS: OLANZapine 2.5 MG TAB PO SCH ×2 (08:23→20:35)
[2017-01-24] MEDS: REMOVE OLD NICOTINE PATCH T-DERMAL SCH (08:25)
[2017-01-24] MEDS: NICOTINE 21 MG/24 HR PATCH T-DERMAL SCH (08:25)
--- NOTE | 2017-01-24 11:44 | HHI.PYPN ---
Subjective Remarks Patient was seen and case discussed with nursing. Patient is alert and oriented 2. Today she is withdrawn and seclusive per nursing. Thought processes delayed with a possible responding to internal stimuli. Affect is flat and patient is hypoverbal. Mood "fluctuates." Patient denies suicidal or homicidal ideation intent or plan. Tolerating medications well. Continues to believe she may have AIDS Chief Complaint: worsening depression, SI, with delusions Mental Status Examination Appearance: Appropriate Consciousness: Alert (but with poor eye contact) Orientation: Person, Place Motor Activity: Normal gait Speech: Hesitant, Slow, Other (low volume) Language: Adequate Fund of Knowledge: Adequate Attention and Concentration: Adequate Memory: Unremarkable Mood: Sad, Other ("better") Affect: Flat, Other (dysthymic) Thought Process & Associations: Other (delayed) Thought Content: Delusional (denies recent thoughts of having AIDS) Hallucination Type: None Delusion Type: Other Suicidal Ideation: Yes (denies but unreliable) Suicidal Plan: No Suicidal Intention: No Homicidal Ideation: No Homicidal Plan: No Homicidal Intention: No Insight: Poor Judgment: Poor Results Vitals/IOs Vital Signs Date Time Temp Pulse Resp B/P (MAP) Pulse Ox O2 Delivery O2 Flow Rate FiO2 01/24/17 06:43 97.1 83 16 168/77 (107) 100 Intake and Output 01/24/17 01/24/17 01/25/17 08:00 16:00 00:00 Intake Total 120 ml Balance 120 ml Assessment & Plan Problem List: (1) Major depressive disorder with psychotic features ICD Codes: F32.3 - Major depressive disorder, single episode, severe with psychotic features Status: Chronic Assessment & Plan Vitals every 6 hours Justification for Cont. Inpt. Patient would decompensate in a less restrictive setting Faheem Iglesias DO Jan 24, 2017 11:44
[2017-01-24] MEDS: VENLAFAXINE HCL XR 75 MG CAP PO SCH (16:00)
[2017-01-25 06:10] VITALS: BP 102/53; PULSE 68; RESP 18; TEMP 98.4; O2SAT 96
[2017-01-25] MEDS: REMOVE OLD NICOTINE PATCH T-DERMAL SCH (09:00)
[2017-01-25] MEDS: NICOTINE 21 MG/24 HR PATCH T-DERMAL SCH (09:00)
[2017-01-25] MEDS: OLANZapine 2.5 MG TAB PO SCH ×2 (09:59→21:06)
[2017-01-25] MEDS: FAMOTIDINE 20 MG TAB PO SCH (09:59)
[2017-01-25] MEDS: METOPROLOL TARTRATE 50 MG TAB PO SCH ×2 (09:59→21:00)
[2017-01-25] MEDS: VENLAFAXINE HCL XR 37.5 MG CAP PO SCH (09:59)
[2017-01-25] MEDS: VENLAFAXINE HCL XR 75 MG CAP PO SCH (16:00)
--- NOTE | 2017-01-25 16:54 | HHI.PYPN ---
Subjective Remarks Patient was seen and case discussed with nursing. Patient is pleasant and cooperative with exam. She says her mood is "better." Remains blunted however. Says she spoke with family. She denies suicidal or homicidal ideation intent or plan. There is a brightening of affect. No longer thinks she has AIDS Chief Complaint: worsening depression, SI, with delusions Mental Status Examination Appearance: Appropriate Consciousness: Alert (but with poor eye contact) Orientation: Person, Place Motor Activity: Normal gait Speech: Hesitant, Slow, Other (low volume) Language: Adequate Fund of Knowledge: Adequate Attention and Concentration: Adequate Memory: Unremarkable Mood: Sad, Other ("better") Affect: Blunt Thought Process & Associations: Other (delayed) Thought Content: Thought blocking Hallucination Type: None Delusion Type: Other Suicidal Ideation: Yes (denies but unreliable) Suicidal Plan: No Suicidal Intention: No Homicidal Ideation: No Homicidal Plan: No Homicidal Intention: No Insight: Poor Judgment: Poor Results Vitals/IOs Vital Signs Date Time Temp Pulse Resp B/P (MAP) Pulse Ox O2 Delivery O2 Flow Rate FiO2 01/25/17 06:10 98.4 68 18 102/53 (19) 96 Assessment & Plan Problem List: (1) Major depressive disorder with psychotic features ICD Codes: F32.3 - Major depressive disorder, single episode, severe with psychotic features Status: Chronic Assessment & Plan Continue current treatment plan Justification for Cont. Inpt. Patient would decompensate in a less restrictive setting Faheem Iglesias DO Jan 25, 2017 16:54
[2017-01-25 19:42] VITALS: BP 115/57; PULSE 61; RESP 18; TEMP 98
[2017-01-26 05:48] VITALS: BP 100/52; PULSE 76; RESP 18; TEMP 98.2
[2017-01-26] MEDS: VENLAFAXINE HCL XR 37.5 MG CAP PO SCH (08:20)
[2017-01-26] MEDS: FAMOTIDINE 20 MG TAB PO SCH (08:21)
[2017-01-26] MEDS: OLANZapine 2.5 MG TAB PO SCH ×2 (08:21→21:09)
[2017-01-26] MEDS: METOPROLOL TARTRATE 50 MG TAB PO SCH ×2 (08:21→21:10)
[2017-01-26] MEDS: NICOTINE 21 MG/24 HR PATCH T-DERMAL SCH (08:22)
[2017-01-26] MEDS: REMOVE OLD NICOTINE PATCH T-DERMAL SCH (08:22)
[2017-01-26] MEDS: VENLAFAXINE HCL XR 75 MG CAP PO SCH (16:35)
--- NOTE | 2017-01-26 16:47 | HHI.PYPN ---
Subjective Remarks Patient seen for follow-up, chart reviewed. Patient found sitting in hospital bed was found earlier eating lunch and the day room with all the other patients. Patient states that she saw her daughter grandson over the weekend which she was happy about. She states feeling better but that she has her " mood moments " which she says her feelings of sadness at times. Patient denies any suicide ideations at time of interview but he reports having brief passive suicidal ideations, reports not feeling "panicky" anymore. Patient denies having any more continued thoughts of having AIDS. Patient states that she plans on likely returning back to live with the daughter wasn't sure daughter will accept her there. Patient states that she would like to get her house back in order when she is discharged but also feeling scared of the possibility of things not getting better when she is back home. Patient sees a is hopeful that she'll continue to do better but states that she would feel much better if she were at home. Chief Complaint: worsening depression, SI, with delusions Review of Systems Except as stated in HPI: all other systems reviewed are Neg Mental Status Examination Appearance: Appropriate Consciousness: Alert (but with poor eye contact) Orientation: Person, Place Motor Activity: Normal gait Speech: Hesitant, Slow, Other (low volume) Language: Adequate Fund of Knowledge: Adequate Attention and Concentration: Adequate Memory: Unremarkable Mood: Sad (less so today), Other ("better") Affect: Other ( more affect today with better eye contact) Thought Process & Associations: Other (delayed) Thought Content: Thought blocking (at times) Hallucination Type: None Delusion Type: Other Suicidal Ideation: Yes Suicidal Plan: No Suicidal Intention: No Homicidal Ideation: No Homicidal Plan: No Homicidal Intention: No Insight: Poor Judgment: Poor Results Vitals/IOs Vital Signs Date Time Temp Pulse Resp B/P (MAP) Pulse Ox O2 Delivery O2 Flow Rate FiO2 01/26/17 05:48 98.2 76 18 100/52 (68) 01/25/17 06:10 96 Intake and Output 01/26/17 01/26/17 01/27/17 08:00 16:00 00:00 Intake Total 600 ml 240 ml Balance 600 ml 240 ml Assessment & Plan Problem List: (1) Major depressive disorder with psychotic features ICD Codes: F32.3 - Major depressive disorder, single episode, severe with psychotic features Status: Chronic Assessment & Plan Patient continues to be depressed but noted to have some improvement with current regimen as patient noted to be more engaging in interview more affect. Patient continues to have some fleeting suicidal ideations or less frequency duration intensity. We'll increase Effexor XR to 150mg by mouth daily and 75mg PM. Continue rest of medications. Discharge planning in progress Justification for Cont. Inpt. At risk for further decompensation if at lower level of care. Discharge Planning Unclear with the patient may be discharge to daughter's home once psychiatric stable. Trevor Clarke MD Jan 26, 2017 16:47
[2017-01-26 18:29] VITALS: BP 165/73; PULSE 73; RESP 17; TEMP 97.8; O2SAT 98
[2017-01-26 22:14] VITALS: BP 98/58; PULSE 76; RESP 16; TEMP 97.8; O2SAT 96
[2017-01-27 06:00] VITALS: BP 153/61; PULSE 75; RESP 18; TEMP 97.3; O2SAT 94
[2017-01-27] MEDS ORDERED: VENLAFAXINE HCL XR 75 MG CAP PO SCH (09:00)
[2017-01-27] MEDS: METOPROLOL TARTRATE 50 MG TAB PO SCH (09:37)
[2017-01-27] MEDS: FAMOTIDINE 20 MG TAB PO SCH (09:37)
[2017-01-27] MEDS: OLANZapine 2.5 MG TAB PO SCH (09:37)
[2017-01-27] MEDS ORDERED: OLAN2.5T PO (09:47)
[2017-01-27] MEDS ORDERED: FAMO20TA2 PO (09:47)
[2017-01-27] MEDS ORDERED: VENL150C39 PO (09:47)
[2017-01-27] MEDS ORDERED: METO25TA3 PO (09:47)
--- NOTE | 2017-01-27 09:47 | HHI.DS ---
Psychiatry Discharge Summary Inpatient Psychiatric care?: Yes Advance Directive: No Reason Not Provided: refused Mental Health AdvanceDirective: No Health Care Proxy: No Admission Admission Date Jan 15, 2017 at 15:28 Admission Diagnosis: (1) Major depressive disorder with psychotic features ICD Code: F32.3 - Major depressive disorder, single episode, severe with psychotic features Brief History Pts seen and discussed with staff. PT was admitted on BA for MDD with psychosis. Staff report that pt has been engaging in bizarre behavior on unit and expressing delusions that she is infected with HIV (pt is negative). She is taking medications and denies side effects. She admits to severe depression and states that she was non-compliant with medications at home. She denies SI/ HI. ew. Family psychiatric history: e Past psychiatric history: previous psychiatric diagnosis of depression and anxiety, one previous psychiatric admission ([place] in 2011), no previous suicide attempt or history of self injurious behavior. Outpatient psychiatrist last seen one year ago. Previous psychiatric medications: remeron 15mg PO HS, aripiprazole 5mg PO daily. Denies history of abuse. Past medical history: Allergies: NKDA Social history: d Collateral contact: Joanna (daughter) [phone] Tobacco Use In Past 30 Days: No Tobacco Past 30 Days Alcohol Use: Never Hospital Course Patient is a 76 y/o woman, , three children (two living), domiciled alone, supported by social security benefits, with past psychiatric history of depression, anxiety with one prior psychiatric hospitalization ( [place] 2011), no previous suicide attempts, no self injurious behavior who was transferred to the inpatient psychiatry unit from the medical floor after stabilization of hyponatremia and YOON after patient was noted to be delusional and depressed for further evaluation and management. Patient was admitted to the inpatient psychiatric unit for further evaluation and management. Patient was started on aripiprazole 2mg PO daily but was switched to olanzapine 2.5mg BID, venlafaxine 37.5mg titrated to 150mg PO daily. Patient responded well to treatment, was noted to be cooperative with staff, improvement of mood, noted to have zana mood, and was active in groups and activities. Upon discharge patient reported feeling good denied any perceptual disturbances nor delusions of having AIDS; denies suicidal ideations or homicidal ideations. Patient agreed to continue treatment and follow up appointments for continuity of care. Patient advised to call 911 or go nearest ED in case of emergency. Patient agreed with plan. Results Blood Pressure 153 / 61 Vital Signs Date Time Temp Pulse Resp B/P (MAP) Pulse Ox O2 Delivery O2 Flow Rate FiO2 01/27/17 06:00 97.3 75 18 153/61 (91) 94 Laboratory Results Test 01/19/17 09:55 Hemoglobin A1c 5.8 % (4.3-6.0) Summary of Procedures Patient had imaging of RT lower extremity which reported nondisplaced fracture of fibula which she was placed on fracture boot. Imaging Last Impressions Ankle X-Ray 01/20/17 0000 Signed Impressions: Service Date/Time: Friday, January 20, 2017 09:40 - CONCLUSION: Nondisplaced fracture of the distal fibula with overlying soft tissue swelling. Scott Jean-Baptsite MD Head CT 01/19/17 0000 Signed Impressions: Service Date/Time: Thursday, January 19, 2017 10:24 - CONCLUSION: Negative for an acute process. Richard Jimenez MD FACR Pending results at discharge: No Medications # of Antipsychotic meds at D/C: 1 Approp Antipsych med options 1 - Minimum of three failed multiple trials of monotherapy. 2 - Documented plan to taper to monotherapy due to previous use of multiple meds OR cross-taper in progress at D/C. 3 - Documentation of augmentation of Clozapine. 4 - Justification other than those listed in allowable values 1-3, document here : Discharge Discharge Date: Jan 27, 2017 Discharge Diagnosis: (1) Major depressive disorder with psychotic features Diagnosis: Principal ICD Code: F32.3 - Major depressive disorder, single episode, severe with psychotic features Status: Chronic (2) Nondisplaced fracture of distal end of right fibula Diagnosis: Secondary ICD Code: S82.831A - Other fracture of upper and lower end of right fibula, initial encounter for closed fracture Pt Condition on Discharge: Stable Discharge Disposition: Discharge Home Discharge Instructions Diet Instructions: As Tolerated, No Restrictions Activities you can perform: Regular-No Restrictions Discharge Time > 30 minutes Mental Status Examination Appearance: Appropriate Consciousness: Alert (but with poor eye contact) Orientation: Person, Place Motor Activity: Normal gait Speech: Other (low volume) Language: Adequate Fund of Knowledge: Adequate Attention and Concentration: Adequate Memory: Unremarkable Mood: Appropriate Affect: Appropriate Thought Process & Associations: Goal directed, Linear Thought Content: Appropriate Hallucination Type: None Delusion Type: Other Suicidal Ideation: No Suicidal Plan: No Suicidal Intention: No Homicidal Ideation: No Homicidal Plan: No Homicidal Intention: No Insight: Fair Judgment: Adequate Discharge/Advance Care Plan Health Problems: (1) Major depressive disorder with psychotic features Goals to promote your health * To prevent worsening of your condition and complications * To maintain your health at the optimal level Directions to meet your goals Take your medications as prescribed Follow your dietary instruction Follow activity as directed Keep your appointments as scheduled Take your immunizations and boosters as scheduled If your symptoms worsen call your PCP, if no PCP go to Urgent Care Center or Emergency Room For 03/11 questions related to your inpatient stay or results of tests pending at discharge, please contact Dr. Trevor Clarke at Smoking is Dangerous to Your Health. Avoid second hand smoking Trevor Clarke MD Jan 27, 2017 09:47
[2017-01-27 18:55] VITALS: BP 140/75; PULSE 72; RESP 18; TEMP 97.7
== END 2017-01-27 19:45 | disposition home or self-care (01) | DRG 885 ==
LOC: H260 15:28 → H250 01-23 11:00
PROVIDERS: ADMIT Student in an Organized Health Care Education/Training Program; ATTEND Student in an Organized Health Care Education/Training Program
DX: F32.3 Major depressive disorder, single episode, severe with psychotic features (principal); N17.9 Acute kidney failure, unspecified; E87.1 Hypo-osmolality and hyponatremia; R45.851 Suicidal ideations; I11.9 Hypertensive heart disease without heart failure; E11.9 Type 2 diabetes mellitus without complications; S82.831A Other fracture of upper and lower end of right fibula, initial encounter for closed fracture; F41.9 Anxiety disorder, unspecified; E78.5 Hyperlipidemia, unspecified; K21.9 Gastro-esophageal reflux disease without esophagitis; W18.49XA Other slipping, tripping and stumbling without falling, initial encounter; Y92.230 Patient room in hospital as the place of occurrence of the external cause; Z91.14 Patient's other noncompliance with medication regimen; Z91.5 Personal history of self-harm
CPT/HCPCS: 70450; 73610; 80048; 83036; L2114